=== PATIENT | male | born 1960 | race Caucasian/White ===

== ENCOUNTER 2017-07-28 14:00 | Inpatient (IN) | payer BC ==
[~2017-07-28] VITALS: Ht 177.8 cm; Wt 102.1 kg
[~2017-07-28 14:00] MED LIST changes: -ALLO100T PO; -CPR500 PO; -GLC/500 PO; -IBUP-103 PO; -MONT1TAB3 PO; -MTR500 PO; -MULTTAB58 PO; -OLME40TA30 PO; -OPTIRAY 320 IV PRN; -PRAV10TA39 PO; -PRVHFAIN INH
[2017-07-28] MEDS ORDERED: PIPERACILLIN/TAZOBACTAM 3.375 GM/100ML D5W IV STA (15:14)
[2017-07-28] MEDS ORDERED: SODIUM CHLORIDE 0.9% 1000ML 1,000 ML IV ONE (15:15)
--- NOTE | 2017-07-28 15:31 | EMERGENCY ROOM VISIT NOTE ---
History First contact with patient: 15:07 Chief Complaint: ABDOMINAL PAIN Stated Complaint: LOWER BELLY PAIN Nursing Triage Summary: Abdominal pain. Denies n/v/d. Seen at [facility], had blood work and CT, told to come to the ER. See orange note and papers on chart. History of Present Illness The patient is a 57 year old male who presents to the Emergency Room with complaints of lower abdominal discomfort for approximately one week. He describes it as a bad, dull aching sensation. He says that it has actually gotten slightly better since it started. He has had no nausea. He has had diarrhea without any blood in his stool. The patient saw his primary care physician 2 days ago. Blood work was performed at that time. He had a CAT scan of the abdomen and pelvis today that showed sigmoid diverticulitis with associated microperforation/developing abscess. He denies any fever or chills. He does report significant fatigue. No history of diverticulitis. He had a colonoscopy that was reportedly normal at [facility] 5 years ago. Review of Systems 10 system review performed and negative unless noted in HPI or below Past Medical/Surgical History Medical Problems: (1) Diverticulitis of intestine with abscess Hypertension, diabetes type 2 Social History Smoking Status: Never Smoker Current/Historical Medications Scheduled Allopurinol (Zyloprim), 100 MG PO DAILY Metformin Hcl (Glucophage), 500 MG PO DAILY Montelukast Sodium (Singulair), 10 MG PO DAILY Multiple Vitamin (Multivitamin), 1 TAB PO DAILY Olmesartan/Hctz (Benicar Hct 40/12.5), 1 TAB PO DAILY Pravastatin Sodium (Pravastatin Sodium), 10 MG PO DAILY Scheduled PRN Albuterol (Ventolin Hfa), 2 PUFFS INH UD PRN for Rescue/COPD Ibuprofen Tab (Advil), 200 MG PO UD PRN for Pain or Fever Allergies Coded Allergies: No Known Allergies (Verified Allergy, Unknown, 06/11/06) Physical Exam Vital Signs Date Time Temp Pulse Resp B/P (MAP) Pulse Ox O2 Delivery O2 Flow Rate FiO2 07/28/17 16:54 79 17 123/88 96 Room Air 07/28/17 16:12 82 17 147/88 95 Room Air 07/28/17 14:02 36.8 89 18 154/94 96 Room Air Physical Exam VITALS: Vitals are noted on the nurse's note and reviewed by myself. Vital signs stable. GENERAL: 57-year-old male, in no acute distress, nondiaphoretic, well-developed well-nourished. SKIN: The skin was without rashes, erythema, edema, or bruising. HEAD: Normocephalic atraumatic. MOUTH: Mucous membranes oral mucosa slightly dry. NECK: No JVD. HEART: Regular rate and rhythm without murmurs gallops or rubs. LUNGS: Clear to auscultation bilaterally without wheezes, rales or rhonchi. No accessory muscle use. ABDOMEN: Positive bowel sounds x 4.Soft, tenderness to palpation noted in the left lower quadrant., without organomegaly. No guarding or rebound tenderness. MUSCULOSKELETAL: No muscle atrophy, erythema, or edema noted. Strength 5/5 throughout. NEURO: Patient was alert and oriented to person place and time. Normal sensation to touch. No focal neurological deficits. Medical Decision & Procedures ER Provider Diagnostic Interpretation: CT of the abdomen and pelvis IMPRESSION: Sigmoid diverticulitis with an adjacent 1.7 cm focus of extraluminal gas. This consistent with a microperforation/developing abscess. Laboratory Results Test 07/28/17 16:05 Immature Granulocyte % (Auto) 0.2 % White Blood Count 6.02 K/uL (4.8-10.8) Red Blood Count 5.12 M/uL (4.7-6.1) Hemoglobin 14.6 g/dL (14.0-18.0) Hematocrit 43.3 % (42-52) Mean Corpuscular Volume 84.6 fL (80-100) Mean Corpuscular Hemoglobin 28.5 pg (25-34) Mean Corpuscular Hemoglobin Concent 33.7 g/dl (32-36) Platelet Count 280 K/uL (130-400) Mean Platelet Volume 10.1 fL (7.4-10.4) Neutrophils (%) (Auto) 44.7 % Lymphocytes (%) (Auto) 42.0 % Monocytes (%) (Auto) 8.6 % Eosinophils (%) (Auto) 4.0 % Basophils (%) (Auto) 0.5 % Neutrophils # (Auto) 2.69 K/uL (1.4-6.5) Lymphocytes # (Auto) 2.53 K/uL (1.2-3.4) Monocytes # (Auto) 0.52 K/uL (0.11-0.59) Eosinophils # (Auto) 0.24 K/uL (0-0.5) Basophils # (Auto) 0.03 K/uL (0-0.2) Immature Granulocyte # (Auto) 0.01 K/uL (0.00-0.02) Prothrombin Time 9.9 SECONDS (9.0-12.0) Prothromb Time International Ratio 0.9 (0.9-1.1) Medications Administered Medications (Trade) Dose Ordered Sig/Jocelyn Route Start Time Stop Time Status Last Admin Dose Admin Sodium Chloride 1,000 ml @ 999 mls/hr Q1H1M ONCE IV 07/28/17 15:15 07/28/17 16:15 DC 07/28/17 16:16 999 MLS/HR Piperacillin Sod/ Tazobactam Sod (Zosyn Iv) 3.375 gm NOW STAT IV 07/28/17 15:14 07/28/17 15:17 DC 07/28/17 16:16 3.375 GM ED Course Patient was seen and examined Vital signs including blood pressure were reviewed medications list was verified with patient Labs were obtained, and a saline lock was established The case was discussed with the emergency room a pharmacist. He was given 1 dose of Zosyn. He was hydrated with 1 L of normal saline. The case was discussed with Dr. Harper from general surgery. He agreed to see the patient in consult. [facility]. Medical Decision Differential diagnosis: Diverticulitis, perforation, abscess, sepsis This patient is a pleasant 57-year-old male that presented to the emergency department per his PCPs instructions after having a CT of the abdomen and pelvis this morning. The patient has had a week of abdominal pain. His CAT scan confirmed sigmoid diverticulitis with microperforation/abscess. He was medicated with antibiotics. He declined pain medications. Here will require admission for further workup and treatment. This chart was completed in part utilizing [employer] Voice Recognition software. Attempts were made to minimize the grammatical errors, random word insertions, pronoun errors and incomplete sentences. Any formal questions or concerns about the content, text or information contained within the body of this dictation should be directly addressed to the provider for clarification. Consults Consulting Physician: dr harper. Dr. Le Impression Primary Impression: Diverticulitis of intestine with abscess Departure Information Referrals Angie Degroot PA-C (PCP) Patient Instructions [facility]
[2017-07-28] MEDS ORDERED: IBUP-103 PO (16:10)
[2017-07-28] MEDS ORDERED: OLME40TA30 PO (16:10)
[2017-07-28] MEDS ORDERED: ALLO100T PO (16:10)
[2017-07-28] MEDS ORDERED: PRVHFAIN INH (16:10)
[2017-07-28] MEDS ORDERED: MULTTAB58 PO (16:10)
[2017-07-28] MEDS ORDERED: MONT1TAB3 PO (16:10)
[2017-07-28] MEDS ORDERED: GLC/500 PO (16:10)
[2017-07-28] MEDS ORDERED: PRAV10TA39 PO (16:10)
[2017-07-28 16:31] LABS: BASO % 0.5 %; BASO ABS # 0.03 K/uL (0-0.2); COMPLETE YES; HEMATOCRIT 43.3 % (42-52); IG% 0.2 %; LYMPH ABS # 2.53 K/uL (1.2-3.4); MEAN CELL VOLUME 84.6 fL (80-100); MEAN CORPUSCULAR HEMOGLOBIN 28.5 pg (25-34); MEAN CORPUSCULAR HGB CONC 33.7 g/dl (32-36); MEAN PLATELET VOLUME 10.1 fL (7.4-10.4); MONO % 8.6 %; NEUT % 44.7 %; PLATELET COUNT 280 K/uL (130-400); RED BLOOD COUNT 5.12 M/uL (4.7-6.1); WHITE BLOOD COUNT 6.02 K/uL (4.8-10.8)
[2017-07-28 16:39] LABS: INR 0.9 (0.9-1.1); PROTHROMBIN TIME (PATIENT) 9.9 SECONDS (9.0-12.0)
[2017-07-28 16:47] LABS: BUN/CREATININE RATIO 18.6 (10-20); CALCIUM 9.1 mg/dl (8.5-10.1); CREATININE 0.98 mg/dl (0.60-1.40); POTASSIUM 3.8 mmol/L (3.5-5.1)
--- NOTE | 2017-07-28 18:22 | Medical Consult ---
Consultation Date of Consultation: Jul 28, 2017. Attending Physician: Reason for Consultation: diverticulitis History of Present Illness pt with 1 week of lower abd dull aching pain- persistent- presenting to ER w/u included CT scan showing mid sigmoid diverticulitis w/ contained perforation- small gas bubble- no fluid or abscess. Social History Smoking Status: Never Smoker Allergies Coded Allergies: No Known Allergies (Verified Allergy, Unknown, 06/11/06) Review of Systems Constitutional: No fever, No chills Respiratory: No cough, No shortness of breath Cardiovascular: No chest pain Abdomen: + pain, No nausea, No vomiting Genitourinary - Male: No dysuria Integumentary: No rash Physical Exam Date Time Temp Pulse Resp B/P (MAP) Pulse Ox O2 Delivery O2 Flow Rate FiO2 07/28/17 16:54 79 17 123/88 96 Room Air 07/28/17 16:12 82 17 147/88 95 Room Air 07/28/17 14:02 36.8 89 18 154/94 96 Room Air General Appearance: WD/WN, no apparent distress Head: atraumatic Eyes: sclerae normal Neck: supple Respiratory/Chest: no respiratory distress Cardiovascular: regular rate, rhythm Abdomen/GI: soft, + pertinent finding (mild lower abd tenderness) Neurologic/Psych: alert Skin: no rash Laboratory Results Last 24 Hours Test 07/28/17 16:05 White Blood Count 6.02 K/uL Red Blood Count 5.12 M/uL Hemoglobin 14.6 g/dL Hematocrit 43.3 % Mean Corpuscular Volume 84.6 fL Mean Corpuscular Hemoglobin 28.5 pg Mean Corpuscular Hemoglobin Concent 33.7 g/dl Platelet Count 280 K/uL Mean Platelet Volume 10.1 fL Neutrophils (%) (Auto) 44.7 % Lymphocytes (%) (Auto) 42.0 % Monocytes (%) (Auto) 8.6 % Eosinophils (%) (Auto) 4.0 % Basophils (%) (Auto) 0.5 % Neutrophils # (Auto) 2.69 K/uL Lymphocytes # (Auto) 2.53 K/uL Monocytes # (Auto) 0.52 K/uL Eosinophils # (Auto) 0.24 K/uL Basophils # (Auto) 0.03 K/uL RDW Standard Deviation 45.4 fL RDW Coefficient of Variation 14.6 % Immature Granulocyte % (Auto) 0.2 % Immature Granulocyte # (Auto) 0.01 K/uL Prothrombin Time 9.9 SECONDS Prothromb Time International Ratio 0.9 Sodium Level 141 mmol/L Potassium Level 3.8 mmol/L Chloride Level 106 mmol/L Carbon Dioxide Level 25 mmol/L Anion Gap 10.0 mmol/L Blood Urea Nitrogen 18 mg/dl Creatinine 0.98 mg/dl Est Creatinine Clear Calc Drug Dose 100.8 ml/min Estimated GFR () 99.5 Estimated GFR (Non- 85.8 BUN/Creatinine Ratio 18.6 Random Glucose 91 mg/dl Calcium Level 9.1 mg/dl Assessment & Plan 07/28/17- pt admitted with acute diverticulitis with very small area of contained perforation. Cont IV atbx 3-5 days- limit po to ice chips for now.
[2017-07-28] MEDS ORDERED: ALUMINUM/MAGNESIUM/SIMETH (MAALOX MAX) 30 ML UDC PO PRN (18:30)
[2017-07-28] MEDS ORDERED: ACETAMINOPHEN 325 MG TAB PO PRN (18:30)
[2017-07-28] MEDS ORDERED: ONDANSETRON INJ 2 MG/ML 2 ML VIAL IV PRN (18:30)
[2017-07-28] MEDS ORDERED: ZOLPIDEM TARTRATE 5 MG TAB PO PRN (18:30)
[2017-07-28] MEDS ORDERED: MAGNESIUM HYDROXIDE SUSP 30 ML UDC PO PRN (18:30)
[2017-07-28] MEDS ORDERED: HydrALAZINE HCL 20 MG/ML VIAL IV. PRN (18:30)
[2017-07-28] MEDS ORDERED: POLYETHYLENE (MIRALAX) 17 GM PACK PO PRN (18:30)
[2017-07-28] MEDS ORDERED: ALBUTEROL HFA 8 GM INHALER INH PRN (18:30)
[2017-07-28 18:59] VITALS: Ht 177.8 cm; Wt 102.1 kg
[2017-07-28] MEDS ORDERED: HYDROmorphone INJ 0.5 MG/0.5 ML SYR IV PRN (19:00)
--- NOTE | 2017-07-28 19:05 | History and Physical ---
History & Physical Date & Time of Service: Jul 28, 2017 at 18:49 Chief Complaint: Lower Belly Pain Primary Care Physician: Angie Degroot PA-C History of Present Illness Source: patient 57 y/o M Hx gout, HTN, HPL, DM, COPD. Presenting with intermittent LLQ abdominal pain x one week - denies fevers/rigors, nausea or vomiting. Has had a few episodes of diarrhea. A CT was obtained in the ER and is consistent with diverticulitis. There is concern for microperforation and developing abscess as well. Leukocytosis is present on initial labs. 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 Does not drink. Smoking Status: Never Smoker Immunizations History of Influenza Vaccine: No History of Tetanus Vaccine?: No History of Pneumococcal: No History of Hepatitis B Vaccine: No Multi-Drug Resistant Organisms History of MDRO: No Allergies Coded Allergies: No Known Allergies (Verified Allergy, Unknown, 06/11/06) Home Medications Scheduled Allopurinol (Zyloprim), 100 MG PO DAILY Metformin Hcl (Glucophage), 500 MG PO DAILY Montelukast Sodium (Singulair), 10 MG PO DAILY Multiple Vitamin (Multivitamin), 1 TAB PO DAILY Olmesartan/Hctz (Benicar Hct 40/12.5), 1 TAB PO DAILY Pravastatin Sodium (Pravastatin Sodium), 10 MG PO DAILY Scheduled PRN Albuterol (Ventolin Hfa), 2 PUFFS INH UD PRN for Rescue/COPD Ibuprofen Tab (Advil), 200 MG PO UD PRN for Pain or Fever Review of Systems Constitutional: No fever, No chills Eyes: No worsening of vision ENT: No hearing loss, No unusual epistaxis, No nasal symptoms Respiratory: No cough, No sputum, No wheezing Cardiovascular: No chest pain, No orthopnea, No PND Abdomen: + pain, + diarrhea, No nausea, No vomiting Musculoskeletal: No joint pain Genitourinary - Male: No hematuria, No dysuria Neurologic: No memory loss, No paralysis, No weakness Psychiatric: No depression symptoms Endocrine: No fatigue Hematologic / Lymphatic: No abnormal bleeding/bruising Integumentary: No rash Allergic / Immunologic: No environmental allergies Physical Exam Vital Signs Date Time Temp Pulse Resp B/P (MAP) Pulse Ox O2 Delivery O2 Flow Rate FiO2 07/28/17 16:54 79 17 123/88 96 Room Air 07/28/17 16:12 82 17 147/88 95 Room Air 07/28/17 14:02 36.8 89 18 154/94 96 Room Air General Appearance: WD/WN, no apparent distress Head: normocephalic Eyes: normal inspection, EOMI ENT: normal ENT inspection, pharynx normal Neck: supple, no JVD Respiratory/Chest: chest non-tender, lungs clear, normal breath sounds Cardiovascular: regular rate, rhythm, no edema, no gallop Abdomen/GI: normal bowel sounds, non tender, soft, + pertinent finding (no current pain to palpation ) Back: normal inspection, no CVA tenderness, no muscle spasm, normal range of motion Extremities/Musculoskelatal: normal inspection, no calf tenderness, normal capillary refill, no pedal edema, normal range of motion Neurologic/Psych: architect marine II-XII nml as tested, no motor/sensory deficits, alert, oriented x 3 Skin: normal color, warm/dry, no rash Diagnostics Laboratory Results Results Past 24 Hours Test 07/28/17 16:05 Range/Units White Blood Count 6.02 4.8-10.8 K/uL Red Blood Count 5.12 4.7-6.1 M/uL Hemoglobin 14.6 14.0-18.0 g/dL Hematocrit 43.3 42-52 % Mean Corpuscular Volume 84.6 80-100 fL Mean Corpuscular Hemoglobin 28.5 25-34 pg Mean Corpuscular Hemoglobin Concent 33.7 32-36 g/dl Platelet Count 280 130-400 K/uL Mean Platelet Volume 10.1 7.4-10.4 fL Neutrophils (%) (Auto) 44.7 % Lymphocytes (%) (Auto) 42.0 % Monocytes (%) (Auto) 8.6 % Eosinophils (%) (Auto) 4.0 % Basophils (%) (Auto) 0.5 % Neutrophils # (Auto) 2.69 1.4-6.5 K/uL Lymphocytes # (Auto) 2.53 1.2-3.4 K/uL Monocytes # (Auto) 0.52 0.11-0.59 K/uL Eosinophils # (Auto) 0.24 0-0.5 K/uL Basophils # (Auto) 0.03 0-0.2 K/uL RDW Standard Deviation 45.4 36.4-46.3 fL RDW Coefficient of Variation 14.6 11.5-14.5 % Immature Granulocyte % (Auto) 0.2 % Immature Granulocyte # (Auto) 0.01 0.00-0.02 K/uL Prothrombin Time 9.9 9.0-12.0 SECONDS Prothromb Time International Ratio 0.9 0.9-1.1 Sodium Level 141 136-145 mmol/L Potassium Level 3.8 3.5-5.1 mmol/L Chloride Level 106 98-107 mmol/L Carbon Dioxide Level 25 21-32 mmol/L Anion Gap 10.0 3-11 mmol/L Blood Urea Nitrogen 18 7-18 mg/dl Creatinine 0.98 0.60-1.40 mg/dl Est Creatinine Clear Calc Drug Dose 100.8 ml/min Estimated GFR () 99.5 Estimated GFR (Non- 85.8 BUN/Creatinine Ratio 18.6 10-20 Random Glucose 91 70-99 mg/dl Calcium Level 9.1 8.5-10.1 mg/dl Impression Assessment and Plan 57 y/o M Hx gout, HTN, HPL, DM, COPD. Presenting with intermittent LLQ abdominal pain x one week - denies fevers/rigors, nausea or vomiting. Has had a few episodes of diarrhea. A CT was obtained in the ER and is consistent with diverticulitis. There is concern for microperforation and developing abscess as well. Leukocytosis is present on initial labs. 1) Diverticulitis - possibly perforation and abscess - pt placed on Zosyn - NPO , surgical consult, IV pain meds as needed. 2) DM - placed on Q6h SS 3) COPD - continue prescribed inhalers - no evidence of acute exacerbation. 4) HTN - Olmesartan held - Hydralazine as needed for BP control 5) gout - cont Allopurinol 6) HPL - cont Statin Tx Full code - SCDs pending surgery eval - total time for this admit including review of labs, meds, imaging - Discussion with pt and ER attending - 35 min Level of Care Med/Surg Resuscitation Status FULL RESUSCITATION VTE Prophylaxis VTE Risk Assessment Done? Y/N: Yes Risk Level: Low Given or contraindicated: SCD's
[2017-07-28 19:40] VITALS: BP 168/102; PULSE 76; TEMP 36.7; O2SAT 95
[2017-07-28] MEDS ORDERED: PIPERACILL/TAZOBAC CONSULT ACTIVE PRN (20:00)
[2017-07-28] MEDS: INSULIN ASPART 100 UNITS/ML 3 ML PEN SC SCH (20:06)
[2017-07-28] MEDS ORDERED: GLUCOSE 40% GEL 15 GM TUBE PO PRN (20:15)
[2017-07-28] MEDS ORDERED: GLUCAGON FOR INJ 1 MG VIAL SQ PRN (20:15)
[2017-07-28] MEDS ORDERED: DEXTROSE 50% 50 ML SYR IV PRN (20:15)
[2017-07-28] MEDS ORDERED: GLUCOSE 10 TABS/TUBE PO PRN (20:15)
[2017-07-28] MEDS: NSS + 20MEQ KCL 1000ML 1,000 ML IV SCH (21:05)
[2017-07-28 21:12] VITALS: BP 140/90
[2017-07-28] MEDS: PIPERACILL/TAZOBAC IV 3.375 GM in DEXTROSE 5% 100ML 100 ML IV SCH (21:43)
[2017-07-29] VITALS (7 sets, daily range): BP systolic 123–158; BP diastolic 76–104; PULSE 73–87; TEMP 36.6–36.8; O2SAT 94–97
[2017-07-29] MEDS: INSULIN ASPART 100 UNITS/ML 3 ML PEN SC SCH ×4 (00:20→18:30)
[2017-07-29] MEDS: PIPERACILL/TAZOBAC IV 3.375 GM in DEXTROSE 5% 100ML 100 ML IV SCH ×3 (05:46→21:32)
[2017-07-29] MEDS: NSS + 20MEQ KCL 1000ML 1,000 ML IV SCH ×2 (05:46→16:47)
[2017-07-29 06:17] LABS: MEAN CELL VOLUME 84.4 fL (80-100); MEAN CORPUSCULAR HEMOGLOBIN 27.1 pg (25-34); MEAN CORPUSCULAR HGB CONC 32.1 g/dl (32-36); MEAN PLATELET VOLUME 9.5 fL (7.4-10.4); PLATELET COUNT 234 K/uL (130-400); RED BLOOD COUNT 4.62 M/uL (4.7-6.1); WHITE BLOOD COUNT 5.98 K/uL (4.8-10.8)
[2017-07-29 06:51] LABS: BUN/CREATININE RATIO 15.2 (10-20); CALCIUM 8.1 mg/dl (8.5-10.1); CREATININE 0.94 mg/dl (0.60-1.40); MAGNESIUM 2.1 mg/dl (1.8-2.4); POTASSIUM 4.1 mmol/L (3.5-5.1)
--- NOTE | 2017-07-29 08:08 | Surgery Progress Note ---
Surgery Progress Note Date of Service Jul 29, 2017. Subjective + feeling well, No complaints, No bowel movement, No nausea Objective Vital Signs: Date Time Temp Pulse Resp B/P (MAP) Pulse Ox O2 Delivery O2 Flow Rate FiO2 07/29/17 07:02 36.8 85 16 123/76 (92) 95 Room Air 07/29/17 00:10 36.6 80 16 132/82 (99) 97 Room Air 07/29/17 00:05 Room Air 07/28/17 21:12 140/90 (107) 07/28/17 19:40 36.7 76 16 168/102 (124) 95 Room Air 07/28/17 19:40 95 Room Air 07/28/17 19:33 80 19 145/100 95 07/28/17 19:13 80 19 145/100 95 Room Air 07/28/17 18:59 Room Air 07/28/17 16:54 79 17 123/88 96 Room Air 07/28/17 16:12 82 17 147/88 95 Room Air 07/28/17 14:02 36.8 89 18 154/94 96 Room Air Abdomen: non tender, non distended, soft Laboratory Results: Results Past 24 Hours Test 07/28/17 16:05 07/28/17 23:58 07/29/17 05:53 07/29/17 06:04 Range/Units White Blood Count 6.02 5.98 4.8-10.8 K/uL Red Blood Count 5.12 4.62 4.7-6.1 M/uL Hemoglobin 14.6 12.5 14.0-18.0 g/dL Hematocrit 43.3 39.0 42-52 % Mean Corpuscular Volume 84.6 84.4 80-100 fL Mean Corpuscular Hemoglobin 28.5 27.1 25-34 pg Mean Corpuscular Hemoglobin Concent 33.7 32.1 32-36 g/dl Platelet Count 280 234 130-400 K/uL Mean Platelet Volume 10.1 9.5 7.4-10.4 fL Neutrophils (%) (Auto) 44.7 % Lymphocytes (%) (Auto) 42.0 % Monocytes (%) (Auto) 8.6 % Eosinophils (%) (Auto) 4.0 % Basophils (%) (Auto) 0.5 % Neutrophils # (Auto) 2.69 1.4-6.5 K/uL Lymphocytes # (Auto) 2.53 1.2-3.4 K/uL Monocytes # (Auto) 0.52 0.11-0.59 K/uL Eosinophils # (Auto) 0.24 0-0.5 K/uL Basophils # (Auto) 0.03 0-0.2 K/uL RDW Standard Deviation 45.4 45.4 36.4-46.3 fL RDW Coefficient of Variation 14.6 14.7 11.5-14.5 % Immature Granulocyte % (Auto) 0.2 % Immature Granulocyte # (Auto) 0.01 0.00-0.02 K/uL Prothrombin Time 9.9 9.0-12.0 SECONDS Prothromb Time International Ratio 0.9 0.9-1.1 Sodium Level 141 143 136-145 mmol/L Potassium Level 3.8 4.1 3.5-5.1 mmol/L Chloride Level 106 110 98-107 mmol/L Carbon Dioxide Level 25 24 21-32 mmol/L Anion Gap 10.0 9.0 3-11 mmol/L Blood Urea Nitrogen 18 14 7-18 mg/dl Creatinine 0.98 0.94 0.60-1.40 mg/dl Est Creatinine Clear Calc Drug Dose 100.8 105.0 ml/min Estimated GFR () 99.5 104.6 Estimated GFR (Non- 85.8 90.3 BUN/Creatinine Ratio 18.6 15.2 10-20 Random Glucose 91 113 70-99 mg/dl Calcium Level 9.1 8.1 8.5-10.1 mg/dl Bedside Glucose 111 110 70-99 mg/dl Magnesium Level 2.1 1.8-2.4 mg/dl Assessment & Plan diverticulitis with microperf improving cont IV Zosyn ice chips, maybe clears later
[2017-07-29] MEDS: ALLOPURINOL 100 MG TAB PO SCH (09:12)
[2017-07-29] MEDS: PRAVASTATIN SOD 10 MG TAB PO SCH (09:12)
[2017-07-29] MEDS: MONTELUKAST SOD 10 MG TAB PO SCH (09:13)
--- NOTE | 2017-07-29 14:34 | Progress Note ---
Subjective Date of Service: Jul 29, 2017. Subjective Pt evaluation today including: conversation w/ patient, physical exam, chart review, lab review, review of studies, review of inpatient medication list Pt resting comfortably in bed No pain at this time No N/V as well Review of Systems Constitutional: No fever, No chills, No sweats, No weight loss, No weakness Eyes: No worsening of vision, No eye pain, No redness, No discharge ENT: No hearing loss, No unusual epistaxis, No nasal symptoms, No sore throat Respiratory: No cough, No sputum, No wheezing, No shortness of breath Cardiac: No chest pain, No orthopnea, No PND, No edema, No claudication Abdomen: No pain, No nausea, No vomiting, No diarrhea, No constipation Musculoskeletal: No joint pain, No muscle pain, No swelling, No calf pain Male : No dysuria, No urinary frequency, No incontinence, No nocturia more than once/night Neurologic: No memory loss, No paralysis, No weakness, No numbness/tingling Psychiatric: No depression symptoms, No anhedonism, No anxiety, No insomnia Endo: No fatigue, No excessive thirst Skin: No rash, No itch Objective Vital Signs Date Time Temp Pulse Resp B/P (MAP) Pulse Ox O2 Delivery O2 Flow Rate FiO2 07/29/17 11:10 36.7 73 16 144/104 (117) 94 Room Air 07/29/17 08:17 95 Room Air 07/29/17 07:45 95 Room Air 07/29/17 07:40 Room Air 07/29/17 07:02 36.8 85 16 123/76 (92) 95 Room Air 07/29/17 00:10 36.6 80 16 132/82 (99) 97 Room Air 07/29/17 00:05 Room Air 07/28/17 21:12 140/90 (107) 07/28/17 19:40 36.7 76 16 168/102 (124) 95 Room Air 07/28/17 19:40 95 Room Air 07/28/17 19:33 80 19 145/100 95 07/28/17 19:13 80 19 145/100 95 Room Air 07/28/17 18:59 Room Air 07/28/17 16:54 79 17 123/88 96 Room Air 07/28/17 16:12 82 17 147/88 95 Room Air Physical Exam General Appearance: WD/WN, no apparent distress Eyes: normal inspection, PERRL, EOMI, sclerae normal Neck: supple, no adenopathy, thyroid normal, no JVD Respiratory/Chest: chest non-tender, lungs clear, normal breath sounds, no respiratory distress Cardiovascular: regular rate, rhythm, no edema, no gallop, no JVD Abdomen: normal bowel sounds, non tender, soft, no organomegaly Extremities: normal range of motion, non-tender, normal inspection, no pedal edema Neurologic/Psychiatric: no motor/sensory deficits, alert, normal mood/affect, oriented x 3 Laboratory Results Last 24 Hours Test 07/28/17 16:05 07/28/17 23:58 07/29/17 05:53 07/29/17 06:04 White Blood Count 6.02 K/uL 5.98 K/uL Red Blood Count 5.12 M/uL 4.62 M/uL Hemoglobin 14.6 g/dL 12.5 g/dL Hematocrit 43.3 % 39.0 % Mean Corpuscular Volume 84.6 fL 84.4 fL Mean Corpuscular Hemoglobin 28.5 pg 27.1 pg Mean Corpuscular Hemoglobin Concent 33.7 g/dl 32.1 g/dl Platelet Count 280 K/uL 234 K/uL Mean Platelet Volume 10.1 fL 9.5 fL Neutrophils (%) (Auto) 44.7 % Lymphocytes (%) (Auto) 42.0 % Monocytes (%) (Auto) 8.6 % Eosinophils (%) (Auto) 4.0 % Basophils (%) (Auto) 0.5 % Neutrophils # (Auto) 2.69 K/uL Lymphocytes # (Auto) 2.53 K/uL Monocytes # (Auto) 0.52 K/uL Eosinophils # (Auto) 0.24 K/uL Basophils # (Auto) 0.03 K/uL RDW Standard Deviation 45.4 fL 45.4 fL RDW Coefficient of Variation 14.6 % 14.7 % Immature Granulocyte % (Auto) 0.2 % Immature Granulocyte # (Auto) 0.01 K/uL Prothrombin Time 9.9 SECONDS Prothromb Time International Ratio 0.9 Sodium Level 141 mmol/L 143 mmol/L Potassium Level 3.8 mmol/L 4.1 mmol/L Chloride Level 106 mmol/L 110 mmol/L Carbon Dioxide Level 25 mmol/L 24 mmol/L Anion Gap 10.0 mmol/L 9.0 mmol/L Blood Urea Nitrogen 18 mg/dl 14 mg/dl Creatinine 0.98 mg/dl 0.94 mg/dl Est Creatinine Clear Calc Drug Dose 100.8 ml/min 105.0 ml/min Estimated GFR () 99.5 104.6 Estimated GFR (Non- 85.8 90.3 BUN/Creatinine Ratio 18.6 15.2 Random Glucose 91 mg/dl 113 mg/dl Calcium Level 9.1 mg/dl 8.1 mg/dl Bedside Glucose 111 mg/dl 110 mg/dl Magnesium Level 2.1 mg/dl Test 07/29/17 11:42 Bedside Glucose 96 mg/dl Assessment and Plan 57 y/o M Hx gout, HTN, HPL, DM, COPD. Presenting with intermittent LLQ abdominal pain x one week - denies fevers/rigors, nausea or vomiting. Has had a few episodes of diarrhea. A CT was obtained in the ER and is consistent with diverticulitis. There is concern for microperforation and developing abscess as well. Leukocytosis is present on initial labs. Diverticulitis with microperforation and abscess - pt placed on Zosyn day # 2 - Kept NPO, surgical consult, IV pain meds. No leukocytosis or fevers and pain controlled. Will defer advancement of diet to surgry team DM - placed on Q6h SS COPD - continue prescribed inhalers - no evidence of acute exacerbation. HTN - Olmesartan held - Hydralazine as needed for BP control gout - cont Allopurinol HPL - cont Statin Tx Full code - SCDs
[2017-07-29] MEDS ORDERED: NURSING VERBAL MED ORDER ONE (16:00)
[2017-07-30] MEDS: INSULIN ASPART 100 UNITS/ML 3 ML PEN SC SCH ×5 (00:10→21:00)
[2017-07-30] MEDS: NSS + 20MEQ KCL 1000ML 1,000 ML IV SCH ×3 (01:55→22:04)
[2017-07-30] MEDS: PIPERACILL/TAZOBAC IV 3.375 GM in DEXTROSE 5% 100ML 100 ML IV SCH ×3 (05:58→22:06)
[2017-07-30 07:05] VITALS: BP 143/90; PULSE 73; TEMP 36.7; O2SAT 96
--- NOTE | 2017-07-30 07:41 | Surgery Progress Note ---
Surgery Progress Note Date of Service Jul 30, 2017. Subjective feels ok- min pain Objective Vital Signs: Date Time Temp Pulse Resp B/P (MAP) Pulse Ox O2 Delivery O2 Flow Rate FiO2 07/29/17 23:15 Room Air 07/29/17 22:49 36.6 76 16 140/83 (102) 94 Room Air 07/29/17 15:23 36.7 87 16 158/89 (112) 95 Room Air 07/29/17 15:20 Room Air 07/29/17 11:10 36.7 73 16 144/104 (117) 94 Room Air 07/29/17 08:17 95 Room Air 07/29/17 07:45 95 Room Air 07/29/17 07:40 Room Air General Appearance: no apparent distress Respiratory/Chest: no respiratory distress Abdomen: soft (minimal tenderness) Laboratory Results: Results Past 24 Hours Test 07/29/17 11:42 07/29/17 18:25 07/30/17 00:02 Range/Units Bedside Glucose 96 92 112 70-99 mg/dl Assessment & Plan 07/30/17- no acute chgs- try clear liquids- cont IV atbx slowly adv diet. will re CT at some point depending on progress- possibly outpt- Dr Badillo covering over weekend
[2017-07-30] MEDS: ALLOPURINOL 100 MG TAB PO SCH (09:03)
[2017-07-30] MEDS: PRAVASTATIN SOD 10 MG TAB PO SCH (09:03)
[2017-07-30] MEDS: MONTELUKAST SOD 10 MG TAB PO SCH (09:03)
--- NOTE | 2017-07-30 15:09 | Progress Note ---
Subjective Date of Service: Jul 30, 2017. Subjective Pt evaluation today including: conversation w/ patient, physical exam, chart review, lab review, review of studies, review of inpatient medication list Pt resting in chair No signs of distress No fevers or chills No concerns noted Review of Systems Constitutional: No fever, No chills, No sweats, No weight loss, No weakness Eyes: No worsening of vision, No eye pain, No redness, No discharge Respiratory: No cough, No sputum, No wheezing, No shortness of breath, No dyspnea on exertion Cardiac: No chest pain, No orthopnea, No PND, No edema, No claudication Abdomen: No pain, No nausea, No vomiting, No diarrhea, No constipation Musculoskeletal: No joint pain, No muscle pain, No swelling, No calf pain Male : No dysuria, No urinary frequency Neurologic: No memory loss, No paralysis, No weakness, No numbness/tingling Psychiatric: No depression symptoms, No anhedonism, No anxiety, No insomnia Endo: No fatigue, No excessive thirst Skin: No rash, No itch Objective Vital Signs Date Time Temp Pulse Resp B/P (MAP) Pulse Ox O2 Delivery O2 Flow Rate FiO2 07/30/17 07:35 Room Air 07/30/17 07:05 36.7 73 16 143/90 (107) 96 Room Air 07/29/17 23:15 Room Air 07/29/17 22:49 36.6 76 16 140/83 (102) 94 Room Air 07/29/17 15:23 36.7 87 16 158/89 (112) 95 Room Air 07/29/17 15:20 Room Air Physical Exam General Appearance: WD/WN, no apparent distress Eyes: normal inspection, PERRL, EOMI, sclerae normal Neck: supple, no adenopathy, thyroid normal Respiratory/Chest: chest non-tender, lungs clear, normal breath sounds, no respiratory distress Cardiovascular: regular rate, rhythm, no edema, no gallop, no JVD Abdomen: normal bowel sounds, non tender, soft, no organomegaly Extremities: normal range of motion, non-tender, normal inspection, no pedal edema Neurologic/Psychiatric: no motor/sensory deficits, alert, normal mood/affect, oriented x 3 Skin: normal color, warm/dry, no rash Lymphatic: no adenopathy Laboratory Results Last 24 Hours Test 07/29/17 18:25 07/30/17 00:02 07/30/17 12:08 Bedside Glucose 92 mg/dl 112 mg/dl 94 mg/dl Assessment and Plan 57 y/o M Hx gout, HTN, HPL, DM, COPD. Presenting with intermittent LLQ abdominal pain x one week - denies fevers/rigors, nausea or vomiting. Has had a few episodes of diarrhea. A CT was obtained in the ER and is consistent with diverticulitis. There is concern for microperforation and developing abscess as well. Diverticulitis with microperforation and abscess Admitted to medical floor No hx of diverticulitis or bowel surgery in the past Placed on Zosyn day # 3, could likely switch to PO cipro and flagyl on discharge General surgery consulted Initially NPO now advanced to clears, per surgery will need slow advancement in diet and possible repeat CT abd/pelvis Pt in no acute abd pain DM - Controlled on ISS COPD - No evidence of acute exacerbation, cont singulair HTN - Benicar (40/12.5) held initially, will cont at this time as HTN remains uncontrolled. Hydralazine PRN for BP control Gout - cont Allopurinol 100 mg PO daily, no acute flares HPL - cont Pravastatin 10 mg PO daily. Full code - SCDs
[2017-07-30] MEDS ORDERED: NURSING VERBAL MED ORDER ONE (15:30)
[2017-07-30 15:48] VITALS: BP 151/91; PULSE 68; TEMP 36.7; O2SAT 96
[2017-07-30 23:05] VITALS: BP 161/93; PULSE 81; TEMP 36.7; O2SAT 95
[2017-07-31 02:32] VITALS: BP 156/91
[2017-07-31] MEDS: PIPERACILL/TAZOBAC IV 3.375 GM in DEXTROSE 5% 100ML 100 ML IV SCH (05:35)
[2017-07-31] MEDS: NSS + 20MEQ KCL 1000ML 1,000 ML IV SCH (07:03)
[2017-07-31 07:07] VITALS: BP 161/88; PULSE 79; TEMP 36.5; O2SAT 96
[2017-07-31 08:00] VITALS: O2SAT 96
[2017-07-31] MEDS: INSULIN ASPART 100 UNITS/ML 3 ML PEN SC SCH ×3 (08:00→17:15)
[2017-07-31] MEDS: MONTELUKAST SOD 10 MG TAB PO SCH (08:24)
[2017-07-31] MEDS: ALLOPURINOL 100 MG TAB PO SCH (08:24)
[2017-07-31] MEDS: PRAVASTATIN SOD 10 MG TAB PO SCH (08:24)
[2017-07-31 08:39] LABS: BASO % 0.2 %; BASO ABS # 0.01 K/uL (0-0.2); COMPLETE YES; EOS % 3.3 %; HEMATOCRIT 38.3 % (42-52); IG% 0.7 %; LYMPH % 31.8 %; LYMPH ABS # 1.75 K/uL (1.2-3.4); MEAN CELL VOLUME 83.1 fL (80-100); MEAN CORPUSCULAR HGB CONC 33.7 g/dl (32-36); MEAN PLATELET VOLUME 9.7 fL (7.4-10.4); MONO % 7.5 %; NEUT % 56.5 %; PLATELET COUNT 283 K/uL (130-400); RED BLOOD COUNT 4.61 M/uL (4.7-6.1)
[2017-07-31] MEDS ORDERED: OLMESARTAN MEDOXOMIL 40 MG TAB PO SCH (09:00)
[2017-07-31] MEDS ORDERED: HYDROCHLOROTHIAZIDE 25 MG TAB PO SCH (09:00)
[2017-07-31 09:10] LABS: BUN/CREATININE RATIO 7.7 (10-20); CALCIUM 8.5 mg/dl (8.5-10.1); CREATININE 0.97 mg/dl (0.60-1.40); POTASSIUM 4.1 mmol/L (3.5-5.1)
--- NOTE | 2017-07-31 09:28 | Surgery Progress Note ---
Surgery Progress Note Date of Service Jul 31, 2017. Subjective Patient examined at bedside this morning. Afebrile, vitals stable on room air overnight, no acute events. Sitting up comfortably in chair this morning, denies pain. Tolerated clear liquids for breakfast without N/V - would like to try more food. Had a normal / solid / formed BM this morning. Ambulating and voiding without difficulty. Objective Vital Signs: Date Time Temp Pulse Resp B/P (MAP) Pulse Ox O2 Delivery O2 Flow Rate FiO2 07/31/17 08:00 96 Room Air 07/31/17 07:07 36.5 79 18 161/88 (112) 96 Room Air 07/31/17 02:32 156/91 (112) 07/31/17 00:05 Room Air 07/30/17 23:05 36.7 81 18 161/93 (115) 95 Room Air 07/30/17 16:10 Room Air 07/30/17 15:48 36.7 68 16 151/91 (111) 96 Room Air General Appearance: WD/WN, no apparent distress Head: normocephalic, atraumatic Neck: supple Respiratory/Chest: lungs clear, normal breath sounds, no respiratory distress Cardiovascular: regular rate, rhythm Abdomen: normal bowel sounds, non tender, non distended, soft (no rebound / guarding) Laboratory Results: Results Past 24 Hours Test 07/30/17 12:08 07/30/17 17:35 07/30/17 20:34 07/31/17 08:05 Range/Units Bedside Glucose 94 105 98 70-99 mg/dl White Blood Count 5.50 4.8-10.8 K/uL Red Blood Count 4.61 4.7-6.1 M/uL Hemoglobin 12.9 14.0-18.0 g/dL Hematocrit 38.3 42-52 % Mean Corpuscular Volume 83.1 80-100 fL Mean Corpuscular Hemoglobin 28.0 25-34 pg Mean Corpuscular Hemoglobin Concent 33.7 32-36 g/dl Platelet Count 283 130-400 K/uL Mean Platelet Volume 9.7 7.4-10.4 fL Neutrophils (%) (Auto) 56.5 % Lymphocytes (%) (Auto) 31.8 % Monocytes (%) (Auto) 7.5 % Eosinophils (%) (Auto) 3.3 % Basophils (%) (Auto) 0.2 % Neutrophils # (Auto) 3.11 1.4-6.5 K/uL Lymphocytes # (Auto) 1.75 1.2-3.4 K/uL Monocytes # (Auto) 0.41 0.11-0.59 K/uL Eosinophils # (Auto) 0.18 0-0.5 K/uL Basophils # (Auto) 0.01 0-0.2 K/uL RDW Standard Deviation 44.3 36.4-46.3 fL RDW Coefficient of Variation 14.6 11.5-14.5 % Immature Granulocyte % (Auto) 0.7 % Immature Granulocyte # (Auto) 0.04 0.00-0.02 K/uL Sodium Level 144 136-145 mmol/L Potassium Level 4.1 3.5-5.1 mmol/L Chloride Level 112 98-107 mmol/L Carbon Dioxide Level 25 21-32 mmol/L Anion Gap 7.0 3-11 mmol/L Blood Urea Nitrogen 8 7-18 mg/dl Creatinine 0.97 0.60-1.40 mg/dl Est Creatinine Clear Calc Drug Dose 101.8 ml/min Estimated GFR () 100.7 Estimated GFR (Non- 86.9 BUN/Creatinine Ratio 7.7 10-20 Random Glucose 112 70-99 mg/dl Calcium Level 8.5 8.5-10.1 mg/dl Assessment & Plan Azael Mckeon is a 57 year old man admitted with acute diverticulitis with microperforation. Afebrile, vitals stable and normal. No leukocytosis. Continues on zosyn. Tolerating clear liquids without difficulty. Having BMs. -No acute surgical intervention indicated at this time -Advanced to regular diet -Transition from IV to PO antibiotics today -Pain control if needed -Could possibly be discharged later today if tolerates diet and transitions to PO antibiotics -Follow up with Dr. Vera as outpatient -Rest of care per primary team -Will continue to follow while inpatient Loree Badillo MD 07/31/17
[2017-07-31] MEDS ORDERED: CIPROFLOXACIN 500 MG TAB PO ONE (09:42)
[2017-07-31] MEDS: METRONIDAZOLE 500 MG TAB PO SCH ×2 (13:59→19:32)
[2017-07-31 15:15] VITALS: BP 152/95; PULSE 72; TEMP 36.9; O2SAT 97
[2017-07-31] MEDS ORDERED: MTR500 PO (19:16)
[2017-07-31] MEDS ORDERED: CPR500 PO (19:16)
[2017-07-31 19:20] VITALS: BP 152/95; PULSE 72; TEMP 36.9; O2SAT 97
--- NOTE | 2017-07-31 19:20 | Discharge Instructions ---
Discharge Instructions Date of Service Jul 31, 2017. Admission Reason for Admission: Acute Diverticulitis Discharge Discharge Diagnosis / Problem: Acute diverticulitis Discharge Goals Goal(s): Improve disease control, Diagnostic testing, Therapeutic intervention Activity Recommendations Activity Limitations: resume your previous activity Exercise/Sports Limitations: gradually increase as tolerated Shower/Bathe: no limitations Driving or Machine Use: no limitations . Instructions / Follow-Up Instructions / Follow-Up You were admitted with acute diverticulitis-an intestinal infection. You had a "microperforation" which is a small pocket of air around the infection. You were treated with IV antibiotics and improved. Please finish out your whole course of oral antibiotics as prescribed-Cipro and Flagyl for 6 more days. Please follow up with your PCP within 1-2 weeks, as well as with Dr. Vera ( Surgeon) in 1-2 weeks. Current Hospital Diet Patient's current hospital diet: Diabetes Type 2 Diet Discharge Diet Recommended Diet: Diabetes Type 2 Diet, Low Fiber Diet (for 2 weeks, then transition back to a high fiber diet) Procedures Procedures Performed: CT abdomen/pelvis Pending Studies Studies pending at discharge: no Medical Emergencies . Who to Call and When: Medical Emergencies: If at any time you feel your situation is an emergency, please call 911 immediately. . Non-Emergent Contact Non-Emergency issues call your: Primary Care Provider, Surgeon Call Non-Emergent contact if: you have a fever, your pain is not controlled, your pain is worsening, your pain is unusual for you, your pain is concerning you, you have any medication questions you have nausea or vomiting . . "Provider Documentation" section prepared by Lesia Martini. . VTE Core Measure Inpt VTE Proph given/why not?: SCD's
--- NOTE | 2017-07-31 19:29 | Discharge Summary ---
Discharge Summary Date of Service Jul 31, 2017. Discharge Summary Admission Date: Jul 28, 2017 at 18:26 Discharge Date: Jul 31, 2017 Discharge Disposition: Home Principal Diagnosis: Acute diverticulitis with microperforation Problems/Secondary Diagnoses: Gout HTN HPL DMII COPD Immunizations: Have You Had Influenza Vaccine: No History of Tetanus Vaccine?: No History of Pneumococcal: No History of Hepatitis B Vaccine: No Procedures: CT abdomen/pelvis: ABDOMEN AND PELVIS CT WITH IV AND ORAL CONTRAST CT DOSE: 748.95 mGy.cm HISTORY: LOWER ABD PAIN TECHNIQUE: Multiaxial CT images of the abdomen and pelvis were performed following the use of intravenous and oral contrast. A dose lowering technique was utilized adhering to the principles of ALARA. COMPARISON STUDY: None. FINDINGS: Punctate calcification within the base of the right lower lobe. The left lung base is clear. Mild hepatic steatosis. The gallbladder, spleen, adrenal glands, pancreas, and left kidney are unremarkable. A 7 mm hypodensity within the right kidney is too small to characterize. Bladder is underdistended but appears unremarkable. Focal area of thickening within the mid sigmoid colon with an inflamed diverticulum consistent with acute diverticulitis. There is an adjacent 1.7 cm focus of extraluminal gas. This is consistent with a microperforation/developing abscess. Normal appendix. No retroperitoneal lymphadenopathy. IMPRESSION: Sigmoid diverticulitis with an adjacent 1.7 cm focus of extraluminal gas. This consistent with a microperforation/developing abscess. Consultations: General Surgery Medication Reconciliation New Medications: Ciprofloxacin (Ciprofloxacin HCl) 500 Mg Tab 500 MG PO BID for 6 Days, #12 TAB Metronidazole (Metronidazole) 500 Mg Tab 500 MG PO TID for 6 Days, #18 TAB Continued Medications: Albuterol (Ventolin Hfa) 60 Puffs/5400 Mcg Aers 2 PUFFS INH UD PRN for Rescue/COPD Allopurinol (Zyloprim) 100 Mg Tab 100 MG PO DAILY, TAB Metformin Hcl (Glucophage) 500 Mg Tab 500 MG PO DAILY, TAB Montelukast Sodium (Singulair) 10 Mg Tab 10 MG PO DAILY, TAB Multiple Vitamin (Multivitamin) 1 Tab Tab 1 TAB PO DAILY, TAB Olmesartan/Hctz (Benicar Hct 40/12.5) Tab 1 TAB PO DAILY, TAB Pravastatin Sodium (Pravastatin Sodium) 10 Mg Tab 10 MG PO DAILY, TAB Discontinued Medications: Ibuprofen Tab (Advil) 200 Mg Tab 200 MG PO UD PRN for Pain or Fever, TAB TAKE PER PACKAGE DIRECTIONS Referrals At Discharge Follow up Referrals: Physician Referral - Within 1-2 Weeks with Angie Degroot PA-C Surgery Referral - Within 1-2 Weeks with Duong Vera M.D. Discharge Exam Feeling great today. Diet was advanced by Surgery this AM and he tolerated lunch and dinner without problems. No abd pain. Denies headache/CP/SOB, is moving his bowels, no hematochezia. Is making urine without problems. Was switched to po abx and tolerating well Review of Systems: Constitutional: No fever, No chills Eyes: No problem reported ENT: No problem reported Respiratory: No shortness of breath Cardiovascular: No chest pain Abdomen: No pain, No nausea, No vomiting, No diarrhea, No constipation, No GI bleeding Musculoskeletal: No problem reported Genitourinary - Male: No problem reported Neurologic: No problem reported Psychiatric: No problem reported Endocrine: No problem reported Hematologic / Lymphatic: No problem reported Integumentary: No problem reported Physical Exam: General Appearance: WD/WN, no apparent distress Eyes: normal inspection, sclerae normal ENT: hearing grossly normal Neck: trachea midline Respiratory/Chest: lungs clear, normal breath sounds, no respiratory distress, no accessory muscle use Cardiovascular: regular rate, rhythm, no edema, no gallop, no murmur Abdomen / GI: normal bowel sounds, non tender, soft, no organomegaly, no pulsatile mass Extremities: normal inspection, no calf tenderness, normal capillary refill , no pedal edema Neurologic/Psychiatric: alert, normal mood/affect, oriented x 3 Skin: normal color, warm/dry, no rash Hospital Course 57 y/o M Hx gout, HTN, HPL, DM, COPD. Presenting with intermittent LLQ abdominal pain x one week - denies fevers/rigors, nausea or vomiting. Has had a few episodes of diarrhea. A CT was obtained in the ER and is consistent with diverticulitis. There is concern for microperforation and developing abscess as well. Diverticulitis with microperforation and abscess Admitted to medical floor No hx of diverticulitis or bowel surgery in the past Placed on Zosyn x 4 days and had great improvement. He had no further pain, was moving his bowels normally, and was tolerating a regula diet at the time of discharge. He was switched to PO cipro and flagyl and tolerated well on day of discharge. General surgery consulted and recommended observation and antibiotics as above. Appreciate their recommendations--> f/u with Surgery in 1-2 weeks as outpt DMII - Controlled on ISS while here, switch back to po metformin on dc COPD - No evidence of acute exacerbation, cont singulair HTN - Benicar (40/12.5) held initially,then restarted as BPs were uncontrolled. BPs acceptable then at time of dc -f/u with PCP Gout - cont Allopurinol 100 mg PO daily, no acute flares HPL - cont Pravastatin 10 mg PO daily. Discharged to home in good condition Total Time Spent: Greater than 30 minutes This includes examination of the patient, discharge planning, medication reconciliation, and communication with other providers. Discharge Instructions Please refer to the electronic Patient Visit Report (Discharge Instructions) for additional information. Follow-Up PCP within 1-2 weeks General Surgery within 1-2 weeks Additional Copies To Angie Degroot PA-C; Duong Vera M.D.
[2017-07-31] MEDS ORDERED: CIPROFLOXACIN 500 MG TAB PO SCH (21:00)
== END 2017-07-31 19:48 | disposition home or self-care (01) | DRG 392 ==
LOC: C.EDB 14:01 → C.MSN 18:26 → ENRESERV 18:53
PROVIDERS: ADMIT Internal Medicine; ATTEND Family Medicine
DX: K57.20 Diverticulitis of large intestine with perforation and abscess without bleeding (principal); I10 Essential (primary) hypertension; E11.9 Type 2 diabetes mellitus without complications; M10.9 Gout, unspecified; J44.9 Chronic obstructive pulmonary disease, unspecified; Z79.899 Other long term (current) drug therapy; Z79.84 Long term (current) use of oral hypoglycemic drugs; Z82.49 Family history of ischemic heart disease and other diseases of the circulatory system

== ENCOUNTER → 2017-07-28 | Outpatient (CLI) | payer BC ==
[~2017-07-28] MED LIST: ALLO100T PO; CPR500 PO; GLC/500 PO; IBUP-103 PO; MONT1TAB3 PO; MTR500 PO; MULTTAB58 PO; OLME40TA30 PO; OPTIRAY 320 IV PRN; PRAV10TA39 PO; PRVHFAIN INH; UNIRETIC
--- NOTE | 2017-07-28 08:29 | DIAGNOSTIC IMAGING REPORT ---
ABDOMEN AND PELVIS CT WITH IV AND ORAL CONTRAST CT DOSE: 748.95 mGy.cm HISTORY: LOWER ABD PAIN TECHNIQUE: Multiaxial CT images of the abdomen and pelvis were performed following the use of intravenous and oral contrast. A dose lowering technique was utilized adhering to the principles of ALARA. COMPARISON STUDY: None. FINDINGS: Punctate calcification within the base of the right lower lobe. The left lung base is clear. Mild hepatic steatosis. The gallbladder, spleen, adrenal glands, pancreas, and left kidney are unremarkable. A 7 mm hypodensity within the right kidney is too small to characterize. Bladder is underdistended but appears unremarkable. Focal area of thickening within the mid sigmoid colon with an inflamed diverticulum consistent with acute diverticulitis. There is an adjacent 1.7 cm focus of extraluminal gas. This is consistent with a microperforation/developing abscess. Normal appendix. No retroperitoneal lymphadenopathy. IMPRESSION: Sigmoid diverticulitis with an adjacent 1.7 cm focus of extraluminal gas. This consistent with a microperforation/developing abscess. Electronically signed by: North Nguyen M.D. 07/28/2017 8:28 AM Dictated Date/Time: 07/28/2017 8:22 AM
== END ==
LOC: C.CTS 05:24
PROVIDERS: ATTEND Physician Assistant
DX: K57.32 Diverticulitis of large intestine without perforation or abscess without bleeding (principal)

== ENCOUNTER → 2017-09-06 | Day surgery (SDC) | payer BC ==
[2017-08-27 09:51] VITALS: BMI 32.0
[~2017-09-06] VITALS: Ht 177.8 cm; Wt 102.3 kg
[~2017-09-06] MED LIST changes: +ALLO100T PO; +GLC/500 PO; +LIDOCAINE HCL 2% 2 ML VIAL (20MG/ML) ONE; +MONT1TAB3 PO; +MULTTAB58 PO; +OLME40TA30 PO; +PRAV10TA39 PO; +PROPOFOL IV EMULSION 10 MG/ML 20 ML VIAL IV ONE; +PRVHFAIN INH; +SODIUM CHLORIDE 0.9% 500ML 500 ML IV ONE; -UNIRETIC
[2017-09-06 11:18] VITALS: Ht 177.8 cm; Wt 102.3 kg
--- NOTE | 2017-09-06 12:26 | Endo History and Physical ---
History & Physical Date of Service: Sep 06, 2017. Chief Complaint: Followup for recent diverticulitis with perforation Referring Physician: DR CHRISTIANSON History of Present Illness 57 yo CM who presents for colonoscopy for followup of recent diverticulitis with perforation. Past Surgical History Hx Cardiac Surgery: No Hx Internal Defibrillator: No Hx Pacemaker: No Hx Abdominal Surgery: No Hx of Implantable Prosthesis: No Hx Post-Op Nausea and Vomiting: No Hx Cancer Surgery: No Hx Thoracic Surgery: No Hx Orthopedic: No Hx Urinary Tract Surgery: No Family History None Social History Smoking Status: Never Smoker Hx Substance Use: No Hx Alcohol Use: No Allergies Coded Allergies: No Known Allergies (Verified , 09/06/17) Current Medications Reported Home Medications Medications Dose Route/Sig Max Daily Dose Days Date Category Ventolin Hfa (Albuterol) 60 Puffs/5400 Mcg Aers 2 Puffs INH UD PRN 07/28/17 Reported Singulair (Montelukast Sodium) 10 Mg Tab 10 Mg PO QAM 07/28/17 Reported Pravastatin Sodium 10 Mg Tab 10 Mg PO HS 07/28/17 Reported Multivitamin (Multiple Vitamin) 1 Tab Tab 1 Tab PO QAM 07/28/17 Reported Glucophage (Metformin Hcl) 500 Mg Tab 500 Mg PO QAM 07/28/17 Reported Benicar Hct 40/12.5 (Olmesartan/HCTZ) Tab 1 Tab PO QAM 07/28/17 Reported Zyloprim (Allopurinol) 100 Mg Tab 100 Mg PO QAM 07/28/17 Reported Vital Signs Weight (Kilograms): 102.27 Height (Feet): 5 Height (Inches): 10 Date Time Temp Pulse Resp B/P (MAP) Pulse Ox O2 Delivery O2 Flow Rate FiO2 09/06/17 11:28 36.7 72 18 163/93 (116) 95 Room Air Physical Exam General Appearance: WD/WN, no apparent distress Respiratory/Chest: Auscultation: breath sounds normal Cardiovascular: Heart Auscultation: RRR Abdomen: Bowel Sounds: normal Inspection & Palpation: soft, non-distended, no tenderness, guarding & rebound Assessment and Plan Assessment: 57 yo CM who presents for colonoscopy for followup of recent diverticulitis with perforation. Plan: Proceed with colonoscopy.
--- NOTE | 2017-09-06 12:46 | GI REPORT ---
Procedure Date: 09/06/2017 12:16 PM Procedure: Colonoscopy Indications: Follow-up of diverticulitis Medicines: Monitored Anesthesia Care Complications: No immediate complications. Estimated Blood Loss: Estimated blood loss: none. Procedure: Pre-Anesthesia Assessment: - Prior to the procedure, a History and Physical was performed, and patient medications and allergies were reviewed. The patient's tolerance of previous anesthesia was also reviewed. The risks and benefits of the procedure and the sedation options and risks were discussed with the patient. All questions were answered, and informed consent was obtained. Prior Anticoagulants: The patient has taken no previous anticoagulant or antiplatelet agents. ASA Grade Assessment: III - A patient with severe systemic disease. After reviewing the risks and benefits, the patient was deemed in satisfactory condition to undergo the procedure. After I obtained informed consent, the scope was passed under direct vision. Throughout the procedure, the patient's blood pressure, pulse, and oxygen saturations were monitored continuously. The scope was introduced through the anus and advanced to the terminal ileum. The colonoscopy was performed without difficulty. The patient tolerated the procedure well. The quality of the bowel preparation was good. The terminal ileum, ileocecal valve, appendiceal orifice, and rectum were photographed. Findings: The perianal and digital rectal examinations were normal. Multiple small-mouthed diverticula were found in the sigmoid colon. Non-bleeding internal hemorrhoids were found during retroflexion. The hemorrhoids were small. Impression: - Diverticulosis in the sigmoid colon. - Non-bleeding internal hemorrhoids. - No specimens collected. Recommendation: - Resume previous diet. - Continue present medications. - Repeat colonoscopy in 10 years for surveillance. - Return to primary care physician as previously scheduled. Gabino Evans, 09/06/2017 12:46:09 PM This report has been signed electronically. Note Initiated On: 09/06/2017 12:16 PM I attest to the content of the Intraoperative Record and orders documented therein, exceptions below
--- NOTE | 2017-09-06 12:49 | Discharge Instructions ---
Endoscopy Patient Instructions Date / Procedure(s) Performed Sep 06, 2017. Colonoscopy Allergy Information Coded Allergies: No Known Allergies (Verified , 09/06/17) Discharge Date / Findings Sep 06, 2017. Diverticulosis Internal hemorrhoids Medication Instructions Stopped Medication(s): METFORMIN MVI OK to resume all medications today as prescribed Reported Home Medications Medications Dose Route/Sig Max Daily Dose Days Date Category Ventolin Hfa (Albuterol) 60 Puffs/5400 Mcg Aers 2 Puffs INH UD PRN 07/28/17 Reported Singulair (Montelukast Sodium) 10 Mg Tab 10 Mg PO QAM 07/28/17 Reported Pravastatin Sodium 10 Mg Tab 10 Mg PO HS 07/28/17 Reported Multivitamin (Multiple Vitamin) 1 Tab Tab 1 Tab PO QAM 07/28/17 Reported Glucophage (Metformin Hcl) 500 Mg Tab 500 Mg PO QAM 07/28/17 Reported Benicar Hct 40/12.5 (Olmesartan/HCTZ) Tab 1 Tab PO QAM 07/28/17 Reported Zyloprim (Allopurinol) 100 Mg Tab 100 Mg PO QAM 07/28/17 Reported Provider Instructions Activity Restrictions - No exercising or heavy lifting for 24 hours. - Do not drink alcohol the day of the procedure. - Do not drive a car or operate machinery until the day after the procedure. - Do not make any important decisions or sign important papers in 24 hours after the procedure. Following Day: - Return to full activity which may include returning to work/school. Diet Start your diet with liquids and light foods (jello, soup, juice, toast). Then eat your usual diet if not nauseated. Treatment For Common After Affects For mild abdominal pain, bloating, or excessive gas: - Rest - Eat lightly - Lie on right side Follow-Up Information Follow-up with DR CHRISTIANSON as scheduled Anesthesia Information What You Should Know You have had a procedure that required some medicine to reduce anxiety and discomfort. This treatment is called moderate sedation. After receiving the treatment, you may be sleepy, but you will be able to breathe on your own. The effects of the treatment may last for several hours. Follow these instructions along with Activity/Diet recommendations noted above: * Do NOT do anything where dizziness or clumsiness would be dangerous. * Rest quietly at home today, then you can be up and about tomorrow. * Have a responsible person stay with you the rest of today. * You may have had an I.V. today. If so, you may take the dressing off later today. Recommendations Call your doctor if: * Trouble breathing * Continuous vomiting for more than 24 hours * Temperature above 101 degrees * Severe abdominal pain or bloating * Pain not relieved by pain medicine ordered * There is increased drainage or redness from any incision * A large amount of rectal bleeding greater than 2-3 tablespoons. (If you had a polyp/s removed or have hemorrhoids, a small amount of blood - from the rectum is to be expected.) * You have any unanswered questions or concerns. IN THE EVENT OF A SERIOUS EMERGENCY, GO TO THE NEAREST EMERGENCY ROOM Your discharge instructions were prepared by provider Gabino Evans. Patient Instructions Signature Page Azael Mckeon Patient (or Guardian) Signature/Date: I have read and understand the instructions given to me by my caregivers. Caregiver/RN/Doctor Signature/Date: The above-named patient and/or guardian has received patient instructions on this date. + Original Patient Signature Page (only) stays with chart. Please make copy for patient.
[2017-09-06 13:16] VITALS: BP 149/96; PULSE 66; O2SAT 95
--- NOTE | 2017-09-06 13:29 | Anesthesiology Progress Note ---
Anesthesia Post Op Note Date & Time Sep 06, 2017 at 13:28 Vital Signs Pain Intensity: 0 Vital Signs Past 12 Hours Date Time Temp Pulse Resp B/P (MAP) Pulse Ox O2 Delivery O2 Flow Rate FiO2 09/06/17 13:16 66 20 149/96 (113) 95 Room Air 09/06/17 13:01 66 20 108/75 (86) 95 Room Air 09/06/17 12:48 73 16 97/64 (75) 95 Room Air 09/06/17 11:28 36.7 72 18 163/93 (116) 95 Room Air Notes Mental Status: alert / awake / arousable, participated in evaluation Pt Amnestic to Procedure: Yes Nausea / Vomiting: adequately controlled Pain: adequately controlled Airway Patency, RR, SpO2: stable & adequate BP & HR: stable & adequate Hydration State: stable & adequate Anesthetic Complications: no major complications apparent
== END | disposition home or self-care (01) ==
LOC: C.GI 11:11
PROVIDERS: ATTEND Internal Medicine
DX: Z09 Encounter for follow-up examination after completed treatment for conditions other than malignant neoplasm (principal); K57.30 Diverticulosis of large intestine without perforation or abscess without bleeding; K64.8 Other hemorrhoids

== ENCOUNTER 2019-09-04 05:14 | Inpatient (IN) ==
--- NOTE | 2019-08-24 10:25 | Anesthesiology Consultation ---
Date of Service August 24, 2019 Assessment & Plan (1) Encounter for pre-operative examination: - Check BSG AM DOS Chart Review Chart Review: Pending: Refer to Additional Notes / Consult section (pending preop testing (labs, EKG)) and Patient seen in Pre Admission Testing Teaching & Discussion Pre-Anesthesia Teaching/Discussion Notes: Instructed NPO after midnight before surgery,except medications with 15 cc of water. Medication instructions provided according to the PAT guidelines. History Surgery Operation Date: 09/04/19 07:00 Proposed Procedures p Laparoscopic-Assisted Sigmoid Colon Resection - Duong Vera MD, FACS Height/Weight Height: 5 ft 9 in Weight: 105.4 kg Allergies Allergy/AdvReac Type Severity Reaction Status Date / Time tiotropium AdvReac Intermediate Breathing Verified 08/16/19 12:00 [From Spiriva with Difficulties HandiHaler] atorvastatin AdvReac Unknown ELEVATED Verified 08/16/19 12:00 LIVER ENZYMES ezetimibe [From Zetia] AdvReac Unknown MUSCLE Verified 08/16/19 12:00 WEAKNESS simvastatin [From Zocor] AdvReac Unknown MUSCLE Verified 08/16/19 12:00 WEAKNESS Medications Home Medications Medication Instructions Recorded Confirmed Last Taken allopurinol 300 mg PO HS 07/05/19 08/16/19 07/04/19 calcipotriene 1 applic TOPICAL BID 07/05/19 08/16/19 07/04/19 metformin 500 mg PO BID 07/05/19 08/16/19 07/04/19 montelukast 10 mg PO HS 07/05/19 08/16/19 07/04/19 multivitamin 1 tab PO QAM 07/05/19 08/16/19 07/04/19 olmesartan-hydrochlorothiazide 1 tab PO QAM 07/05/19 08/16/19 07/04/19 triamcinolone acetonide 1 applic TOPICAL BID 07/05/19 08/16/19 07/04/19 umeclidinium [Incruse Ellipta] 1 inh INHALATION HS 07/05/19 08/16/19 07/03/19 metronidazole 500 mg tablet 500 mg PO .COMPLEX #3 tab 08/17/19 Unknown neomycin 500 mg tablet 1 gm PO .COMPLEX #6 tab 08/17/19 Unknown Past Medical History Medical History COPD (chronic obstructive pulmonary disease) stable HTN (hypertension) History of diverticulitis espisode 07/26/19 s/p abx History of gout Hypercholesteremia Obesity Psoriasis Type 2 diabetes mellitus NIDDM Exercise / Class Metabolic Activity II 4-5 Yardwork/Stairs/Walk up hill Past Family History Family History Father Family history of diabetes mellitus (DM) Past Surgical History Surgical History History of colonoscopy History of ear surgery L - "REPLACING LITTLE BONES WITH CARTILAGE" Past Anesthesia History No Hx of Anesthesia Complications and No Family Hx of Anesthesia Complications History of PONV No Hx of PONV and No Hx of Motion Sickness Social History Smoking Status: Never smoker Do You Dip or Chew Tobacco: No Hx Alcohol Use: No Hx Substance Use: No substance use type: does not use Review of Systems Patient denies chest pain, shortness of breath, dyspnea on exertion, reflux, cough, wheezing, palpitations. Physical Exam Vital Signs VITALS BP 132/81 P 78 TEMP 98.2 SP02 93%RA RESP 18 PHYSICAL Full neck and c-spine range of motion. Full TMJ range of motion. TMD 3.5 finger breaths Mallampati Score 2 Dentition: intact, upper right false tooth "glued in" Lungs: clear throughout to auscultation Cardiac: regular rate and rhythm, no murmurs noted Spine: normal Carotid arteries: negative bruit Extremities: no edema Testing Laboratory Results 07/05/19 SODIUM 137 POTASSIUM 3.9 CHLORIDE 103 CO2 26 BUN 14 CREATININE 1.17 GLUCOSE 126
--- NOTE | 2019-08-24 10:36 | PAT Medication Instructions ---
Medication Instructions Date of Service August 24, 2019 Home Medications Medication Instructions Recorded metronidazole 500 mg tablet 500 mg PO .COMPLEX #3 tab 08/17/19 neomycin 500 mg tablet 1 gm PO .COMPLEX #6 tab 08/17/19 allopurinol 300 mg PO HS 07/05/19 [History Confirmed 08/16/19] calcipotriene 1 applic TOPICAL BID 07/05/19 [History Confirmed 08/16/19] metformin 500 mg PO BID 07/05/19 [History Confirmed 08/16/19] montelukast 10 mg PO HS 07/05/19 [History Confirmed 08/16/19] multivitamin 1 tab PO QAM 07/05/19 [History Confirmed 08/16/19] olmesartan-hydrochlorothiazide 1 tab PO QAM 07/05/19 [History Confirmed 08/16/19] triamcinolone acetonide 1 applic TOPICAL BID 07/05/19 [History Confirmed 08/16/19] umeclidinium [Incruse Ellipta] 1 inh INHALATION HS 07/05/19 [History Confirmed 08/16/19] STOP taking 24 hours before surgery calcipotriene 1 applic TOPICAL BID 07/05/19 [History Confirmed 08/16/19] triamcinolone acetonide 1 applic TOPICAL BID 07/05/19 [History Confirmed 08/16/19] DO NOT take the morning of surgery metformin 500 mg PO BID 07/05/19 [History Confirmed 08/16/19] multivitamin 1 tab PO QAM 07/05/19 [History Confirmed 08/16/19] olmesartan-hydrochlorothiazide 1 tab PO QAM 07/05/19 [History Confirmed 08/16/19] Take evening before surgery allopurinol 300 mg PO HS 07/05/19 [History Confirmed 08/16/19] metformin 500 mg PO BID 07/05/19 [History Confirmed 08/16/19] montelukast 10 mg PO HS 07/05/19 [History Confirmed 08/16/19] umeclidinium [Incruse Ellipta] 1 inh INHALATION HS 07/05/19 [History Confirmed 08/16/19] Other Notes If you have any questions please call us at [phone] or [phone] or [phone] or [phone]
[2019-08-24 12:44] LABS: Basophils # (auto) 0.03 K/uL (0-0.2); Basophils % (auto) 0.5 %; Eosinophils # (auto) 0.18 K/uL (0-0.5); Hematocrit (blood only) 43.3 % (42-52); Hemoglobin 14.1 g/dL (14.0-18.0); Immature Granulocytes # (auto) 0.02 K/uL (0.00-0.02); Immature Granulocytes % (auto) 0.3 %; Lymphocytes # (auto) 2.31 K/uL (1.2-3.4); Lymphocytes % (auto) 37.9 %; Mean Corpuscular Hemoglobin 28.7 pg (25-34); Mean Corpuscular Hgb Conc 32.6 g/dL (32-36); Monocytes # (auto) 0.73 K/uL (0.11-0.59); Neutrophils # (auto) 2.82 K/uL (1.4-6.5); Neutrophils % (auto) 46.3 %; Platelet Count 251 K/uL (130-400); RDW Coefficient of Variation 15.2 % (11.5-14.5); RDW Standard Deviation 48.3 fL (36.4-46.3); Red Blood Count 4.92 M/uL (4.7-6.1); White Blood Count 6.09 K/uL (4.8-10.8)
[2019-08-24 13:09] LABS: Estimated Average Glucose 151 mg/dl; Hemoglobin A1C 6.9 % (4.5-5.6)
--- NOTE | 2019-09-04 05:57 | History & Physical Report ---
Date of Service September 04, 2019 Assessment & Plan (1) Acute diverticulitis: Patient is for laparoscopic assisted sigmoid colectomy [facility] General anesthesia Admission to the hospital (2) History of diverticulitis: History of Present Illness Primary Care Provider: SOFÍA Read Patient with a history of recurrent diverticulitis Is hospitalized for contained perforation from diverticulitis He has had recurrent symptoms since that time Allergies Allergy/AdvReac Type Severity Reaction Status Date / Time tiotropium AdvReac Intermediate Breathing Verified 09/04/19 05:37 [From Spiriva with Difficulties HandiHaler] atorvastatin AdvReac Unknown ELEVATED Verified 09/04/19 05:37 LIVER ENZYMES ezetimibe [From Zetia] AdvReac Unknown MUSCLE Verified 09/04/19 05:37 WEAKNESS simvastatin [From Zocor] AdvReac Unknown MUSCLE Verified 09/04/19 05:37 WEAKNESS Home Medications Home Medications Medication Instructions Recorded Confirmed Type allopurinol 300 mg PO HS 07/05/19 09/04/19 History calcipotriene 1 applic TOPICAL BID 07/05/19 09/04/19 History metformin 500 mg PO BID 07/05/19 09/04/19 History montelukast 10 mg PO HS 07/05/19 09/04/19 History multivitamin 1 tab PO QAM 07/05/19 09/04/19 History olmesartan-hydrochlorothiazide 1 tab PO QAM 07/05/19 09/04/19 History triamcinolone acetonide 1 applic TOPICAL BID 07/05/19 09/04/19 History umeclidinium [Incruse Ellipta] 1 inh INHALATION HS 07/05/19 09/04/19 History metronidazole 500 mg tablet 500 mg PO .COMPLEX #3 tab 08/17/19 09/04/19 Rx neomycin 500 mg tablet 1 gm PO .COMPLEX #6 tab 08/17/19 09/04/19 Rx Past Med/Surg History Medical History COPD (chronic obstructive pulmonary disease) stable HTN (hypertension) History of diverticulitis espisode 07/26/19 s/p abx History of gout Hypercholesteremia Obesity Psoriasis Type 2 diabetes mellitus NIDDM Surgical History History of colonoscopy History of ear surgery L - "REPLACING LITTLE BONES WITH CARTILAGE" Family History Father Family history of diabetes mellitus (DM) Social History Preferred Language: Greenlandic Communication Ability: Effective Medical Oncologist Required: No Beliefs That Will Affect Care: None Current Living Situation: Spouse Other Information That Helps Us Care for You: No Feels Safe at Home: Yes Smoking Status: Never smoker Do You Dip or Chew Tobacco: No ; Hx Alcohol Use: No Hx Substance Use: No Review of Systems All systems reviewed & are unremarkable except as noted in HPI & below Physical Exam Constitutional: well developed and well nourished; no acute distress Eyes: + anicteric sclerae Respiratory: normal respiratory effort; no respiratory distress Cardiovascular: Rate/Rhythm: regular rate Gastrointestinal (Abdomen): Percussion/Palpation: abdomen soft Musculoskeletal: Gait: normal gait Skin: no rashes, warm and dry Neurologic: awake Psychiatric: Orientation: alert Results & Data Vital Signs (Past 12 Hours) Vital Signs Temp Pulse Resp BP Pulse Ox 09/04/19 05:41 36.2 C L 86 18 121/75 94
[2019-09-04] MEDS ORDERED: LR 15ML/HR IV SCH (06:00)
[2019-09-04] MEDS ORDERED: cefOXitin 2,000 MG in DEXTROSE 5% 50 ML IV SCH (06:00)
[2019-09-04] MEDS ORDERED: ePHEDrine sulfate 50 MG/ML AMP IV PRN (06:38)
[2019-09-04] MEDS ORDERED: ATROPINE SULFATE 0.1 MG/ML 10ML SYR IV PRN (06:38)
[2019-09-04] MEDS ORDERED: HYDROmorphone INJ 1 MG/ML SYRINGE IV PRN (06:38)
[2019-09-04] MEDS ORDERED: fentaNYL citrate 100 MCG/2 ML VIAL IV PRN (06:38)
[2019-09-04] MEDS ORDERED: ONDANSETRON INJ 2 MG/ML 2 ML VIAL IV PRN ×2 (06:38→10:52)
[2019-09-04] MEDS ORDERED: fentaNYL citrate 100 MCG/2 ML VIAL ONE ×2 (06:54→09:43)
[2019-09-04] MEDS ORDERED: MIDAZOLAM HCL 1 MG/ML 2ML VIAL ONE (06:54)
[2019-09-04] MEDS ORDERED: BUPIVACAINE 0.5 % 5 MG/1 ML MPF 30ML VIAL ONE (07:07)
[2019-09-04] MEDS ORDERED: HYDROmorphone INJ 2 MG/ML SYR/VIAL ONE (08:02)
[2019-09-04] MEDS ORDERED: PHENYLEPHRINE 100MCG/ML 5ML SYR ONE (08:03)
[2019-09-04] MEDS ORDERED: ROCURONIUM BROMIDE 10 MG/ML 5 ML VIAL ONE ×2 (08:03→09:16)
[2019-09-04] MEDS ORDERED: ePHEDrine sulfate 50 MG/ML SYR ONE (08:03)
[2019-09-04] MEDS ORDERED: PROPOFOL IV EMULSION 10 MG/ML 20 ML VIAL IV ONE (08:03)
[2019-09-04] MEDS ORDERED: LIDOCAINE HCL 2% 2 ML VIAL/AMP(20MG/ML) INFIL ONE (08:03)
[2019-09-04] MEDS ORDERED: NEOSTIGMINE METHYLSULFATE 5 MG/5 ML SYR ONE (08:03)
[2019-09-04] MEDS ORDERED: ONDANSETRON INJ 2 MG/ML 2 ML VIAL ONE (08:03)
[2019-09-04] MEDS ORDERED: GLYCOPYRROLATE 0.2 MG/ML VIAL ONE (08:03)
[2019-09-04] MEDS ORDERED: ACETAMINOPHEN 1,000 MG/100 ML VIAL IV ONE (09:35)
--- NOTE | 2019-09-04 09:35 | Post Operative Brief Note ---
PG Immediate Post Op with CF Date of Surgery September 04, 2019 Pre & Post Diagnosis Operation Date: 09/04/19 07:00 Pre-Op Diagnosis: Acute Diverticulitis Post-Op Diagnosis: Acute Diverticulitis umbilical hernia I identified the patient and participated in the time-out.: Yes Procedure Operation Date: 09/04/19 07:00 Actual Procedures p Laparoscopic-Assisted Sigmoid Colon Resection, Umbilical hernia repair - Duong Vera MD, FACS Surgeon Duong Vera MD, FACS Home Support Worker Nina Romo Estimated Blood Loss 30 Findings Consistent with Post-Op Diagnosis Specimens Specimen Description: Permanent Specimen A: Sigmoid Colon, staple line is proximal B: Hernia Tissue Drains Kilgore Catheter, Eugenio-Fitch Drain (15Fr) and Jesus Drain
--- NOTE | 2019-09-04 10:24 | Anesthesiology Progress Note ---
Date of Service September 04, 2019 Anesthesia Post Procedure Vital Signs Vital Signs: Temp Pulse Pulse Resp BP BP Pulse Ox 09/04/19 10:20 83 16 121/79 95 09/04/19 10:10 82 14 137/78 93 09/04/19 10:00 79 14 139/79 92 09/04/19 09:51 36.2 C L 85 16 106/74 94 09/04/19 05:41 36.2 C L 86 18 121/75 94 Transfer of Care Handoff Completed per policy Notes Mental Status: alert / awake / arousable and participated in evaluation Patient Amnestic to Procedure: Yes Nausea / Vomiting: adequately controlled Pain: adequately controlled Airway Patency, RR, SpO2: stable & adequate BP & HR: stable & adequate Hydration State: stable & adequate Anesthetic Complications: no major complications apparent and Pt Satisfied with anesthetic care
[2019-09-04] MEDS ORDERED: HYDROmorphone INJ 2 MG/ML SYR/VIAL IV PRN (10:52)
[2019-09-04] MEDS ORDERED: PROMETHAZINE HCL 25 MG in SODIUM CHLORIDE 0.9% 50 ML IV PRN (10:52)
[2019-09-04] MEDS ORDERED: PROMETHAZINE HCL 12.5 MG in SODIUM CHLORIDE 0.9% 50 ML IV PRN (10:52)
--- NOTE | 2019-09-04 11:14 | Operative Report ---
DATE OF OPERATION: 09/04/2019 NAME OF OPERATION: Laparoscopic assisted sigmoid colon resection with umbilical hernia repair. PREOPERATIVE DIAGNOSIS: History of acute diverticulitis. POSTOPERATIVE DIAGNOSIS: History of acute diverticulitis with umbilical hernia. STAFF SURGEON: Duong Vera MD POOL HALL INSPECTOR: Ilya Romo PA-C ANESTHESIA: General. DESCRIPTION OF PROCEDURE: The patient was brought in the operating room and placed on the operating table in supine position. [place]gore catheter, orogastric tube, pneumatic stockings were placed. My workers compensation claims assistant helped with prepping, draping, resection of the colon, repair of the hernia and closure of the wound. Initially, laparoscopy was performed making an incision just below the umbilicus using 0.5% plain Marcaine to anesthetize skin and subcutaneous tissue. Balloon cannula placed at this level and then under visualization after appropriate pneumoperitoneum, three 5 mm ports were placed, 1 left lower quadrant, 1 right lower quadrant, 1 right upper quadrant. At this point, the left colon and sigmoid colon were mobilized by incising along the left colic gutter, mobilizing the colon medially up to the splenic flexure. We were able to identify the ureter during the dissection. At this point, an open procedure was performed. The patient did have a small umbilical hernia. Incision was made just around the umbilicus and then inferiorly in the midline carrying dissection down into the abdomen. Sigmoid colon was then mobilized. There was an area of distal thickening consistent with his history of diverticulitis with perforation. The descending colon was transected using a MARTIN 80 stapler and then the rectosigmoid transected and then the tissue sent to routine pathology with the staple line proximal. At this point, end-to-end anastomosis was performed in a handsewn fashion with 2 layers, seromuscular layer of 3-0 silk and then a mucosal layer of 2-0 chromic suture. At this point, the abdomen was irrigated with antibiotic solution. A 15 round Eugenio-Fitch drain placed into the pelvis, secured to skin using 3-0 nylon suture, this was through the right lower quadrant port site. At this point, all ports were removed and the abdomen was closed, reapproximating the fascia superiorly at the umbilical hernia site using #1 Ethibond suture, then closing the peritoneum and posterior fascia using running #1 chromic suture, anterior fascia using both running and interrupted #1 PDS suture. [place] drain placed in the subcutaneous space, secured to the skin using 3-0 silk suture. Drain was secured using 3-0 nylon suture. Skin was reapproximated using ambar. The patient was transferred to recovery room in stable condition. I attest to the content of the Intraoperative Record and any orders documented therein. Any exception s are noted below.
[2019-09-04] MEDS: HYDROmorphone INJ 0.5 MG/0.5 ML SYR IV PRN (12:11)
[2019-09-04] MEDS: NSS + 20MEQ KCL 20 MEQ/1,000 ML BAG IV SCH ×2 (12:25→21:35)
[2019-09-04] MEDS: HYDROmorphone INJ 1 MG/ML SYRINGE IV PRN (13:48)
[2019-09-04] MEDS: cefOXitin 2,000 MG in DEXTROSE 5% 50 ML IV SCH ×2 (14:07→21:35)
[2019-09-04] MEDS ORDERED: NALOXONE HCL 0.4 MG/1 ML VIAL/CARP IV PRN (14:40)
[2019-09-04] MEDS ORDERED: GLUCAGON FOR INJ 1 MG VIAL IM PRN (15:00)
[2019-09-04] MEDS ORDERED: GLUCOSE 10 TABS/TUBE PO PRN (15:00)
[2019-09-04] MEDS ORDERED: GLUCOSE 40% GEL 15 GM TUBE PO PRN (15:00)
[2019-09-04] MEDS ORDERED: CARBOHYDRATES FOR HYPOGLYCEMIA PO PRN (15:00)
[2019-09-04] MEDS ORDERED: DEXTROSE 50% 50 ML SYRINGE IV PRN (15:00)
[2019-09-04] MEDS ORDERED: Nursing to Pharmacy Communication ONE (15:07)
--- NOTE | 2019-09-04 15:26 | Consultation ---
Date of Consultation September 04, 2019 Assessment & Plan (1) Type 2 diabetes mellitus: hold metformin use Novolog SS with correction factor 40 and no carb ratio BSG q6 while not eating DM diet once eating monitor for hypoglycemia (2) HTN (hypertension): hold AM meds until BMP is checked typically on ARB and HCTZ (3) Hypercholesteremia: can resume treatment on discharge (4) COPD (chronic obstructive pulmonary disease): no wheezing or distress on exam continue Incruse Ellipta, patient can use his own (5) Psoriasis: continue Triamcinolone and Calcipotriene (6) History of diverticulitis: now presents after sigmoidectomy (7) S/P colon resection: sigmoidectomy due to recurrent diverticulitis pain control with DX BOARD OPERATOR encourage deep breaths with bedside spirometry DVT prophylaxis, diet per Dr. Vera History of Present Illness Requesting Physician: Dr. Vera Reason for Consultation: medical management Attending Physician: Duong Vera MD, FACS History of Present Illness 59 yo male here after undergoing laparoscopic sigmoidectomy with umbilical hernia repair. The sigmoidectomy was performed due to recurrent episodes of sigmoid diverticulitis. The patient tolerated the procedure well, no complications, transferred to the floor in stable condition. He admits to some increased pain in the lower abdominal area, PRN dosing of narcotics was not sufficient and surgery ordered a DX BOARD OPERATOR pump to provide better r elief. He says that he feels like he needs to void but cannot, discussed with him that he has a call catheter in place to keep his bladder drained, those sensations can be normal. No fever or chills, no dyspnea or wheezing, no chest pain or pressure. Denies nausea. He has a h/o DM type II, HTN both of which he reports are well controlled. Also with a h/o psoriasis and he brought his own topical treatments that he wants to continue to use here. He denies a history of smoking or drinking alcohol. He works at [employer] currently. Allergies Allergy/AdvReac Type Severity Reaction Status Date / Time atorvastatin AdvReac Intermediate ELEVATED Verified 09/04/19 06:47 LIVER ENZYMES tiotropium AdvReac Intermediate Breathing Verified 09/04/19 06:47 [From Spiriva with Difficulties HandiHaler] ezetimibe [From Zetia] AdvReac Mild MUSCLE Verified 09/04/19 06:47 WEAKNESS simvastatin [From Zocor] AdvReac Mild MUSCLE Verified 09/04/19 06:47 WEAKNESS Home Medications Home Medications Medication Instructions Recorded Confirmed Type allopurinol 300 mg PO HS 07/05/19 09/04/19 History calcipotriene 1 applic TOPICAL BID 07/05/19 09/04/19 History metformin 500 mg PO BID 07/05/19 09/04/19 History montelukast 10 mg PO HS 07/05/19 09/04/19 History multivitamin 1 tab PO QAM 07/05/19 09/04/19 History olmesartan-hydrochlorothiazide 1 tab PO QAM 07/05/19 09/04/19 History triamcinolone acetonide 1 applic TOPICAL BID 07/05/19 09/04/19 History umeclidinium [Incruse Ellipta] 1 inh INHALATION HS 07/05/19 09/04/19 History metronidazole 500 mg tablet 500 mg PO .COMPLEX #3 tab 08/17/19 09/04/19 Rx neomycin 500 mg tablet 1 gm PO .COMPLEX #6 tab 08/17/19 09/04/19 Rx Patient History Medical History COPD (chronic obstructive pulmonary disease) stable History of diverticulitis espisode 07/26/19 s/p abx History of gout Psoriasis HTN (hypertension) Hypercholesteremia Obesity Type 2 diabetes mellitus NIDDM Surgical History History of colonoscopy History of ear surgery L - "REPLACING LITTLE BONES WITH CARTILAGE" S/P colon resection (09/04/19) Laparoscopic assisted sigmoid colon resection with umbilical hernia repair. Dr. Vera 09/04/19 Family History Father Family history of diabetes mellitus (DM) Social History Preferred Language: Upper Sorbian Communication Ability: Effective Geoscientist Required: No Beliefs That Will Affect Care: None Current Living Situation: Spouse Other Information That Helps Us Care for You: No Feels Safe at Home: Yes Smoking Status: Never smoker Do You Dip or Chew Tobacco: No ; Hx Alcohol Use: No Hx Substance Use: No Review of Systems Review of Systems: All systems reviewed & are unremarkable except as noted in HPI & below Constitutional: no fever, no chills and no sweats Respiratory: no cough and no dyspnea Cardiovascular: no chest pain, no palpitations and no edema Gastrointestinal: + abdominal pain; no nausea, no vomiting, no constipation and no diarrhea/loose stools Genitourinary: no dysuria, no urinary frequency and no urinary hesitancy Physical Exam Constitutional: WD/WN, vitals as above Eyes: PERRL, conjunctivae normal, anicteric sclerae ENMT: external ear and nose normal, oropharynx normal Neck: trachea midline, no thyromegaly Respiratory: normal respiratory effort, lungs clear to auscultation (decreased in bases) Cardiovascular: RRR, no murmur, no edema Gastrointestinal (Abdomen): Inspection/Auscultation: abdomen normal to inspection and + hypoactive bowel sounds Percussion/Palpation: + abdomen tender and abdomen soft; no guarding, abdomen not rigid and no hepatospleno megaly Musculoskeletal: no cyanosis or clubbing, extremities motor strength 5/5 Skin: + rash (several psoriatic rashes) Neurologic: patellar DTR's 2+ bilat, sensation intact and PERRL, EOMI, accommodation nl, no face palsy, no dysarthria Psychiatric: A+Ox3, euthymic affect Lymphatic: no cervical or axillary lymphadenopathy Results & Data Vital Signs (Past 12 Hours) Vital Signs Temp Pulse Pulse Resp BP BP Pulse Ox 09/04/19 15:12 36.5 C 110 H 20 149/77 H 95 09/04/19 13:44 36.6 C 93 H 16 135/88 95 09/04/19 12:50 100 H 17 138/83 93 09/04/19 11:45 97 H 18 138/89 95 09/04/19 11:15 36.5 C 91 H 20 144/80 H 96 09/04/19 10:30 36.3 C L 87 14 137/86 93 09/04/19 10:20 83 16 121/79 95 09/04/19 10:10 82 14 137/78 93 09/04/19 10:00 79 14 139/79 92 09/04/19 09:51 36.2 C L 85 16 106/74 94 09/04/19 05:41 36.2 C L 86 18 121/75 94 PG Care Time/CCT Total # of Minutes Spent Total Time Spent with Patient: Total time spent is greater than 50% in coordination of care (as documented) at patient's floor/unit and/or counseling patient:
[2019-09-04] MEDS ORDERED: INSULIN ASPART 100 UNITS/ML 3 ML PEN SC SCH (16:30)
[2019-09-04] MEDS: HYDROmorphone PCA 30 MG/30 ML IV PRN ×2 (16:34→20:45)
[2019-09-04] MEDS: SODIUM CHLORIDE 0.9% 1000ML 1,000 ML IV SCH (16:51)
[2019-09-04] MEDS: INSULIN ASPART 100 UNITS/ML 3 ML PEN SC SCH (18:18)
[2019-09-04] MEDS: CALCIPOTRIENE TOP SCH (20:49)
[2019-09-04] MEDS: UMECLIDINIUM BROMIDE INH SCH (20:49)
[2019-09-04] MEDS: ACETAMINOPHEN 1,000 MG/100 ML VIAL IV SCH (20:57)
[2019-09-05] MEDS: INSULIN ASPART 100 UNITS/ML 3 ML PEN SC SCH ×4 (00:23→17:55)
[2019-09-05] MEDS: ACETAMINOPHEN 1,000 MG/100 ML VIAL IV SCH ×3 (05:30→22:08)
[2019-09-05] MEDS ORDERED: LORazepam 1 MG/2 ML VIAL IV PRN (05:53)
[2019-09-05 05:56] LABS: Basophils # (auto) 0.01 K/uL (0-0.2); Basophils % (auto) 0.1 %; Eosinophils # (auto) 0.01 K/uL (0-0.5); Eosinophils % (auto) 0.1 %; Hematocrit (blood only) 41.2 % (42-52); Hemoglobin 13.6 g/dL (14.0-18.0); Immature Granulocytes # (auto) 0.02 K/uL (0.00-0.02); Immature Granulocytes % (auto) 0.2 %; Lymphocytes # (auto) 1.38 K/uL (1.2-3.4); Lymphocytes % (auto) 12.1 %; Mean Corpuscular Hemoglobin 29.2 pg (25-34); Mean Corpuscular Volume 88.6 fL (80-100); Mean Platelet Volume 10.1 fL (7.4-10.4); Monocytes # (auto) 1.39 K/uL (0.11-0.59); Monocytes % (auto) 12.2 %; Neutrophils # (auto) 8.61 K/uL (1.4-6.5); Neutrophils % (auto) 75.3 %; Platelet Count 247 K/uL (130-400); RDW Coefficient of Variation 15.2 % (11.5-14.5); RDW Standard Deviation 48.7 fL (36.4-46.3); Red Blood Count 4.65 M/uL (4.7-6.1); White Blood Count 11.42 K/uL (4.8-10.8)
--- NOTE | 2019-09-05 05:58 | Surgery Progress Note ---
Date of Service September 05, 2019 Assessment & Plan (1) H/O colectomy: 09/04/19- sigmoid colectomy mild tachy- bp stable, good ur output, dr demetrice stark- mild distention , decr bs cont ice only, , d/c call, IV meds- has LOAN SERVICES PROFESSIONAL walk in hallway, check labs Results & Data Vital Signs (Past 12 Hours) Vital Signs Temp Pulse Resp BP Pulse Ox 09/05/19 03:30 36.3 C L 109 H 16 118/75 94 09/04/19 23:50 36.9 C 106 H 16 145/89 H 93 09/04/19 20:43 36.9 C 112 H 20 119/71 94 09/04/19 19:43 37.0 C 113 H 15 162/88 H 93 09/04/19 19:13 37.0 C 103 H 20 144/84 H 93 09/04/19 18:45 18 94 09/04/19 18:19 95 H PG Care Time/CCT Total # of Minutes Spent Total Time Spent with Patient: Total time spent is greater than 50% in coordination of care (as documented) at patient's floor/unit and/or counseling patient:
[2019-09-05 06:00] LABS: Albumin Level 3.6 gm/dl (3.4-5.0); BUN Creatinine Ratio 12.5 (10-20); Calcium 8.1 mg/dl (8.5-10.1); Est GFR (African American) 84.4; Est GFR (Non-African American) 72.8; Magnesium 2.1 mg/dl (1.8-2.4); Potassium 4.1 mmol/L (3.5-5.1)
[2019-09-05 06:03] LABS: Bilirubin,Total 0.8 mg/dl (0.2-1); Globulin 3.6 gm/dl (2.5-4.0); Phosphorus 3.7 mg/dl (2.5-4.9); Total Protein 7.2 gm/dl (6.4-8.2)
[2019-09-05] MEDS: cefOXitin 2,000 MG in DEXTROSE 5% 50 ML IV SCH ×3 (06:09→22:08)
[2019-09-05] MEDS: KETOROLAC 30 MG/ML VIAL IV SCH ×3 (06:14→17:53)
[2019-09-05] MEDS: NSS + 20MEQ KCL 20 MEQ/1,000 ML BAG IV SCH ×2 (07:43→17:51)
[2019-09-05] MEDS: MOMETASONE FUROATE NAE SCH (09:13)
[2019-09-05] MEDS: CALCIPOTRIENE TOP SCH ×2 (09:14→21:59)
[2019-09-05] MEDS: HEPARIN SOD 5,000 UNIT/0.5 ML VIAL SQ SCH ×2 (09:15→22:00)
--- NOTE | 2019-09-05 10:32 | Hospitalist Progress Note ---
Date of Service September 05, 2019 Assessment & Plan (1) Type 2 diabetes mellitus: continue to hold metformin but can resume on discharge use Novolog SS with correction factor 40 and no carb ratio BSG q6 while not eating DM diet once eating monitor for hypoglycemia (2) HTN (hypertension): BP low normal without any medications continue to hold Olmesartan HCTZ BMP with normal cr and electrolytes resume BP meds on discharge or can resume if he actually becomes hypertensive (3) Hypercholesteremia: can resume treatment on discharge (4) COPD (chronic obstructive pulmonary disease): no wheezing or distress on exam breathing comfortably on 2L, likely some atelectasis after surgery continue Incruse Ellipta, patient can use his own (5) Psoriasis: continue Triamcinolone and Calcipotriene a few scattered psoriatic rashes (6) History of diverticulitis: now presents after sigmoidectomy (7) S/P colon resection: sigmoidectomy due to recurrent diverticulitis POD 1 pain control with [employer], using a little less frequently encourage deep breaths with bedside spirometry DVT prophylaxis, diet per Dr. Vera still on ice chips only, no flatus yet he is ambulating quite well in the halls will sign off at this time, medically stable, please contact Dr. Crawley if his condition changes Subjective patient OOB in chair, no distress just finished ambulating in the halls appreciate surgery note, just ice chips for time being reviewed labs, WBC 11k, Hb stable, Cr and electrolytes stable no flatus yet, no nausea or vomiting, abdominal pain better with [employer] no chest pain or dyspnea Review of Systems Review of Systems: All systems reviewed & are unremarkable except as noted in HPI & below Constitutional: no fever Gastrointestinal: + abdominal pain (lower, constant, worse with movement) and + constipation (obstipation); no nausea, no vomiting and no diarrhea/loose stools Physical Exam Constitutional: WD/WN, vitals as above Eyes: PERRL, conjunctivae normal, anicteric sclerae ENMT: external ear and nose normal, oropharynx normal Neck: trachea midline, no thyromegaly Respiratory: normal respiratory effort, lungs clear to auscultation (decreased in bases) Cardiovascular: RRR, no murmur, no edema Gastrointestinal (Abdomen): Inspection/Auscultation: abdomen normal to inspection and + hypoactive bowel sounds Percussion/Palpation: + abdomen tender (lower) and abdomen soft; no guarding, abdomen not rigid and no hepatosplenomegaly Musculoskeletal: no cyanosis or clubbing, extremities motor strength 5/5 Skin: + rash (several psoriatic rashes) Neurologic: patellar DTR's 2+ bilat, sensation intact and PERRL, EOMI, accommodation nl, no face palsy, no dysarthria Psychiatric: A+Ox3, euthymic affect Lymphatic: no cervical or axillary lymphadenopathy Results & Data Vital Signs (Past 12 Hours) Vital Signs Temp Pulse Resp BP Pulse Ox 09/05/19 08:26 12 09/05/19 07:31 9 L 09/05/19 07:23 36.9 C 96 H 16 117/71 92 09/05/19 03:30 36.3 C L 109 H 16 118/75 94 09/04/19 23:50 36.9 C 106 H 16 145/89 H 93 Laboratory Results Laboratory Results - last 24 hr 09/04/19 09/04/19 09/04/19 12:08 18:03 23:53 WBC RBC Hgb Hct MCV MCH MCHC RDW Std Deviation RDW Coeff of Johanna Plt Count MPV Immature Gran % (Auto) Neut % (Auto) Lymph % (Auto) [place] % (Auto) Eos % (Auto) Baso % (Auto) Immature Gran # (Auto) Neut # (Auto) Lymph # (Auto) [place] # (Auto) Eos # (Auto) Baso # (Auto) Sodium Potassium Chloride Carbon Dioxide Anion Gap BUN Creatinine Est Cr Clr Drug Dosing Est GFR ( Amer) Est GFR (Non-Af Amer) BUN/Creatinine Ratio Glucose POC Glucose 146 H 151 H 137 H Calcium Phosphorus Magnesium Total Bilirubin AST ALT Alkaline Phosphatase Total Protein Albumin Globulin Albumin/Globulin Ratio 09/05/19 09/05/19 09/05/19 05:08 05:08 05:42 WBC 11.42 H RBC 4.65 L Hgb 13.6 L Hct 41.2 L MCV 88.6 MCH 29.2 MCHC 33.0 RDW Std Deviation 48.7 H RDW Coeff of Johanna 15.2 H Plt Count 247 MPV 10.1 Immature Gran % (Auto) 0.2 Neut % (Auto) 75.3 Lymph % (Auto) 12.1 [place] % (Auto) 12.2 Eos % (Auto) 0.1 Baso % (Auto) 0.1 Immature Gran # (Auto) 0.02 Neut # (Auto) 8.61 H Lymph # (Auto) 1.38 [place] # (Auto) 1.39 H Eos # (Auto) 0.01 Baso # (Auto) 0.01 Sodium 138 Potassium 4.1 Chloride 107 Carbon Dioxide 25 Anion Gap 6.0 BUN 14 Creatinine 1.11 Est Cr Clr Drug Dosing 87.0 Est GFR ( Amer) 84.4 Est GFR (Non-Af Amer) 72.8 BUN/Creatinine Ratio 12.5 Glucose 144 H POC Glucose 139 H Calcium 8.1 L Phosphorus 3.7 Magnesium 2.1 Total Bilirubin 0.8 AST 56 H ALT 170 H Alkaline Phosphatase 61 Total Protein 7.2 Albumin 3.6 Globulin 3.6 Albumin/Globulin Ratio 1.0 Medications Administered Current Inpatient Medications Dextrose (Dextrose 50%) 25 - 50 ml IV UD PRN; Protocol PRN Reason: Hypoglycemia Protocol Stop: 10/04/19 14:59 Glucagon (Glucagen) 1 mg IM UD PRN; Protocol PRN Reason: Hypoglycemia Protocol Stop: 10/04/19 14:59 Glucose (Glucose 40%) 15 - 30 gm PO UD PRN; Protocol PRN Reason: Hypoglycemia Protocol Stop: 10/04/19 14:59 Glucose (Dex4 Glucose) 4 - 8 tabs PO UD PRN; Protocol PRN Reason: Hypoglycemia Protocol Stop: 10/04/19 14:59 Heparin Sodium (Porcine) (Heparin Sodium (Porcine)) 5,000 units SQ Q12 [facility] Stop: 10/05/19 08:59 Last Admin: 09/05/19 09:15 Dose: 5,000 units Documented by: Hydromorphone HCl (Dilaudid) 0.5 mg IV Q3HWA PRN PRN Reason: Pain Stop: 09/18/19 10:51 Last Admin: 09/04/19 12:11 Dose: 0.5 mg Documented by: Hydromorphone HCl (Dilaudid) 1 mg IV Q3HWA PRN PRN Reason: Pain Stop: 09/18/19 10:51 Last Admin: 09/04/19 13:48 Dose: 1 mg Documented by: Hydromorphone HCl (Dilaudid) 2 mg IV Q4HWA PRN PRN Reason: Pain Stop: 09/18/19 10:51 Hydromorphone HCl () 30 mg IV PRN PRN; Protocol PRN Reason: [employer] Pain Titration Stop: 09/18/19 14:39 Last Admin: 09/04/19 20:45 Dose: 30 mg Documented by: Promethazine HCl 25 mg/ Sodium (Chloride) 51 mls @ 204 mls/hr IV Q6H PRN PRN Reason: Nausea And Vomiting Stop: 10/04/19 10:51 Cefoxitin Sodium 2,000 mg/ (Dextrose) 70 mls @ 100 mls/hr IV Q8 [facility] Stop: 09/14/19 13:59 Last Infusion: 09/05/19 07:04 Dose: Infused Documented by: Potassium Chloride/Sodium Chloride (Normal Saline W/20 Meq Kcl) 20 meq in 1,000 mls @ 100 mls/hr IV .Q10H [facility] Stop: 10/04/19 11:14 Last Admin: 09/05/19 07:43 Dose: 100 mls/hr Documented by: Promethazine HCl 12.5 mg/ (Sodium Chloride) 50.5 mls @ 204 mls/hr IV Q6H PRN PRN Reason: Nausea And Vomiting Stop: 10/04/19 10:51 Sodium Chloride (Nss 1000ml) 1,000 mls @ 15 mls/hr IV .Q24H [facility] Stop: 09/18/19 14:40 Last Admin: 09/04/19 16:51 Dose: Not Given Documented by: Acetaminophen (Ofirmev) 1,000 mg in 100 mls @ 400 mls/hr IV Q8 [facility] Stop: 09/07/19 20:29 Last Infusion: 09/05/19 06:12 Dose: Infused Documented by: Lorazepam (Ativan) 1 mg in 2 mls @ 2 mls/min IV Q6HWA PRN PRN Reason: Anxiety Stop: 10/05/19 05:52 Insulin Aspart (Novolog Flexpen) 0 units SC Q6 [facility] Stop: 10/04/19 17:59 Last Admin: 09/05/19 06:01 Dose: Not Given Documented by: Ketorolac Tromethamine (Toradol) 30 mg IV Q6H [facility] Stop: 09/10/19 05:59 Last Admin: 09/05/19 06:14 Dose: 30 mg Documented by: Miscellaneous (Carbohydrates For Hypoglycemia) 15 - 30 gm PO UD PRN PRN Reason: Hypoglycemia Treatment Stop: 10/04/19 14:59 Mometasone Furoate (Nasonex) 2 sprays ANGEL DAILY [facility] Stop: 10/05/19 08:59 Last Admin: 09/05/19 09:13 Dose: 2 sprays Documented by: Naloxone HCl (Narcan) 0.1 mg IV Q5M PRN; Protocol PRN Reason: Oversedation/Resp Depression Stop: 09/18/19 14:39 Calcipotriene Cream~ ~Non-Formulary Patient's Own Med 1 ea TOP BID [facility] Stop: 10/04/19 20:59 Last Admin: 09/05/19 09:14 Dose: 1 appln Documented by: Ondansetron HCl (Zofran) 4 mg IV 4XDQ4H PRN PRN Reason: Nausea Stop: 10/04/19 10:51 Umeclidinium [place] (Incruse Ellipta) 1 ea INH DAILY@1999 [facility] Stop: 10/04/19 19:59 Last Admin: 09/04/19 20:49 Dose: Not Given Documented by: PG Care Time/CCT Total # of Minutes Spent Total Time Spent with Patient: Total time spent is greater than 50% in coordination of care (as documented) at patient's floor/unit and/or counseling patient:
[2019-09-05] MEDS: SODIUM CHLORIDE 0.9% 1000ML 1,000 ML IV SCH (12:54)
[2019-09-05] MEDS: UMECLIDINIUM BROMIDE INH SCH (21:30)
[2019-09-06] MEDS: KETOROLAC 30 MG/ML VIAL IV SCH ×5 (00:14→23:14)
[2019-09-06] MEDS: INSULIN ASPART 100 UNITS/ML 3 ML PEN SC SCH ×4 (00:48→18:23)
[2019-09-06] MEDS: NSS + 20MEQ KCL 20 MEQ/1,000 ML BAG IV SCH ×3 (03:44→23:12)
[2019-09-06] MEDS: ACETAMINOPHEN 1,000 MG/100 ML VIAL IV SCH ×4 (05:33→21:18)
[2019-09-06] MEDS: cefOXitin 2,000 MG in DEXTROSE 5% 50 ML IV SCH ×3 (05:41→21:18)
--- NOTE | 2019-09-06 07:04 | Progress Note ---
Date of Service September 06, 2019 Assessment & Plan (1) H/O colectomy: some bloating, ur retention- call back in less pain - using CH[employer] abd- mod distention, dec bs, drain serosang cont npo, ice, popsicles check labs- mobilize- walk in hallway- NG if vomits- doubt will be needed ask Urology to see re- urinary retention Results & Data Vital Signs (Past 12 Hours) Vital Signs Temp Pulse Pulse Resp BP Pulse Ox 09/06/19 03:30 36.8 C 88 16 165/88 H 96 09/06/19 00:13 37.2 C 90 14 148/87 H 95 09/05/19 23:21 37.2 C 89 18 149/80 H 92 09/05/19 19:23 37.1 C 93 H 18 150/87 H 92 PG Care Time/CCT Total # of Minutes Spent Total Time Spent with Patient: Total time spent is greater than 50% in coordination of care (as documented) at patient's floor/unit and/or counseling patient:
[2019-09-06 07:40] LABS: BUN Creatinine Ratio 11.4 (10-20); Calcium 8.3 mg/dl (8.5-10.1); Creatinine Clr Calc Pharmacy 79.2 ml/min; Est GFR (African American) 75.3; Est GFR (Non-African American) 64.9; Magnesium 2.2 mg/dl (1.8-2.4); Potassium 4.5 mmol/L (3.5-5.1)
[2019-09-06 07:49] LABS: Albumin Globulin Ratio 0.8 (0.9-2); Bilirubin,Total 0.6 mg/dl (0.2-1); Globulin 3.7 gm/dl (2.5-4.0); Phosphorus 2.2 mg/dl (2.5-4.9); Total Protein 6.7 gm/dl (6.4-8.2)
[2019-09-06] MEDS ORDERED: TAMSULOSIN HCL 0.4 MG CAP PO ONE (08:05)
--- NOTE | 2019-09-06 08:05 | Urology Consultation ---
Date of Consultation September 06, 2019 Assessment & Plan (1) Urinary retention: Postop urinary retention Likely combination of BPH as well as anesthesia/pain medication and limited mobility Start tamsulosin now Voiding trial prior to DC home presuming it is longer than 48 hours from now If discharged home happens prior to that time we will plan for voiding trial in the office History of Present Illness Attending Physician: Duong Vera MD, FACS History of Present Illness Postop urinary retention after sigmoid colectomy denies any prior urinary issues No Flomax or other medications before surgery No pain or hematuria Tolerating his catheter well Attempted a voiding trial yesterday but failed resulting in replacement of catheter Allergies Allergy/AdvReac Type Severity Reaction Status Date / Time atorvastatin AdvReac Intermediate ELEVATED Verified 09/04/19 06:47 LIVER ENZYMES tiotropium AdvReac Intermediate Breathing Verified 09/04/19 06:47 [From Spiriva with Difficulties HandiHaler] ezetimibe [From Zetia] AdvReac Mild MUSCLE Verified 09/04/19 06:47 WEAKNESS simvastatin [From Zocor] AdvReac Mild MUSCLE Verified 09/04/19 06:47 WEAKNESS Home Medications Home Medications Medication Instructions Recorded Confirmed Type allopurinol 300 mg PO HS 07/05/19 09/04/19 History calcipotriene 1 applic TOPICAL BID 07/05/19 09/04/19 History metformin 500 mg PO BID 07/05/19 09/04/19 History montelukast 10 mg PO HS 07/05/19 09/04/19 History multivitamin 1 tab PO QAM 07/05/19 09/04/19 History olmesartan-hydrochlorothiazide 1 tab PO QAM 07/05/19 09/04/19 History triamcinolone acetonide 1 applic TOPICAL BID 07/05/19 09/04/19 History umeclidinium [Incruse Ellipta] 1 inh INHALATION HS 07/05/19 09/04/19 History metronidazole 500 mg tablet 500 mg PO .COMPLEX #3 tab 08/17/19 09/04/19 Rx neomycin 500 mg tablet 1 gm PO .COMPLEX #6 tab 08/17/19 09/04/19 Rx Patient History Medical History COPD (chronic obstructive pulmonary disease) stable History of diverticulitis espisode 07/26/19 s/p abx History of gout HTN (hypertension) Hypercholesteremia Obesity Psoriasis Type 2 diabetes mellitus NIDDM Surgical History History of colonoscopy History of ear surgery L - "REPLACING LITTLE BONES WITH CARTILAGE" S/P colon resection (09/04/19) Laparoscopic assisted sigmoid colon resection with umbilical hernia repair. Dr. Vera 09/04/19 Family History Father Family history of diabetes mellitus (DM) Social History Preferred Language: Slovak Communication Ability: Effective Ballet Teacher Required: No Beliefs That Will Affect Care: None marital status: Current Living Situation: Spouse Other Information That Helps Us Care for You: No Feels Safe at Home: Yes Smoking Status: Never smoker Do You Dip or Chew Tobacco: No ; Hx Alcohol Use: No Hx Substance Use: No Review of Systems Review of Systems: All systems reviewed & are unremarkable except as noted in HPI & below Physical Exam Physical Exam: NAD AAOx3 no resp distress - NC O2 in place abd soft, incisions appropriate catheter in place - clear urine no edema no rashes moving all extremities Results & Data Vital Signs (Past 12 Hours) Vital Signs Temp Pulse Pulse Resp BP Pulse Ox 09/06/19 07:58 36.9 C 89 14 124/62 92 09/06/19 03:30 36.8 C 88 16 165/88 H 96 09/06/19 00:13 37.2 C 90 14 148/87 H 95 09/05/19 23:21 37.2 C 89 18 149/80 H 92 PG Care Time/CCT Total # of Minutes Spent Total Time Spent with Patient: Total time spent is greater than 50% in coordination of care (as documented) at patient's floor/unit and/or counseling patient:
[2019-09-06] MEDS: HEPARIN SOD 5,000 UNIT/0.5 ML VIAL SQ SCH ×2 (09:00→19:56)
[2019-09-06] MEDS: MOMETASONE FUROATE NAE SCH (09:00)
[2019-09-06] MEDS: CALCIPOTRIENE TOP SCH ×2 (09:00→21:17)
[2019-09-06] MEDS: SODIUM CHLORIDE 0.9% 1000ML 1,000 ML IV SCH (13:58)
[2019-09-06] MEDS ORDERED: SODIUM PHOSPHATE 9 MMOL in SODIUM CHLORIDE 0.9% 250 ML IV STA (15:12)
[2019-09-06] MEDS: TAMSULOSIN HCL 0.4 MG CAP PO SCH (19:56)
[2019-09-06] MEDS: UMECLIDINIUM BROMIDE INH SCH (21:16)
[2019-09-07] MEDS: INSULIN ASPART 100 UNITS/ML 3 ML PEN SC SCH ×5 (00:13→20:40)
[2019-09-07] MEDS: cefOXitin 2,000 MG in DEXTROSE 5% 50 ML IV SCH (05:32)
[2019-09-07] MEDS: ACETAMINOPHEN 1,000 MG/100 ML VIAL IV SCH ×2 (05:32→13:38)
[2019-09-07] MEDS: KETOROLAC 30 MG/ML VIAL IV SCH ×3 (05:33→18:38)
--- NOTE | 2019-09-07 05:50 | Progress Note ---
Date of Service September 07, 2019 Assessment & Plan (1) H/O colectomy: pain better controlled good urine output- call for now- voiding trial prior to d/c- will be here 3-4 days more- likely more active bs- distended- await flatus/ bm cont IV meds- d/c atbx Results & Data Vital Signs (Past 12 Hours) Vital Signs Temp Pulse Resp BP BP Pulse Ox 09/07/19 03:13 36.9 C 89 16 145/80 H 97 09/06/19 23:11 37.1 C 89 16 150/79 H 95 09/06/19 19:12 36.5 C 94 H 14 137/78 95 PG Care Time/CCT Total # of Minutes Spent Total Time Spent with Patient: Total time spent is greater than 50% in coordination of care (as documented) at patient's floor/unit and/or counseling patient:
[2019-09-07 07:07] LABS: Albumin Globulin Ratio 0.8 (0.9-2); Albumin Level 2.9 gm/dl (3.4-5.0); BUN Creatinine Ratio 11.2 (10-20); Bilirubin,Total 0.6 mg/dl (0.2-1); Calcium 8.1 mg/dl (8.5-10.1); Creatinine Clr Calc Pharmacy 79.9 ml/min; Est GFR (Non-African American) 65.6; Globulin 3.8 gm/dl (2.5-4.0); Phosphorus 1.8 mg/dl (2.5-4.9); Potassium 4.1 mmol/L (3.5-5.1); Total Protein 6.7 gm/dl (6.4-8.2)
[2019-09-07] MEDS: HEPARIN SOD 5,000 UNIT/0.5 ML VIAL SQ SCH ×2 (08:58→20:20)
[2019-09-07] MEDS: MOMETASONE FUROATE NAE SCH (09:01)
[2019-09-07] MEDS: CALCIPOTRIENE TOP SCH ×2 (09:02→20:19)
[2019-09-07] MEDS: NSS + 20MEQ KCL 20 MEQ/1,000 ML BAG IV SCH ×2 (09:46→20:07)
[2019-09-07] MEDS ORDERED: SODIUM PHOSPHATE 3 MMOL/1 ML INFUSION IV STA (10:13)
[2019-09-07] MEDS ORDERED: SODIUM PHOSPHATE 15 MMOL in SODIUM CHLORIDE 0.9% 250 ML IV ONE (10:45)
[2019-09-07] MEDS: SODIUM CHLORIDE 0.9% 1000ML 1,000 ML IV SCH (13:35)
[2019-09-07] MEDS: UMECLIDINIUM BROMIDE INH SCH (20:15)
[2019-09-07] MEDS: TAMSULOSIN HCL 0.4 MG CAP PO SCH (20:17)
[2019-09-08] MEDS: KETOROLAC 30 MG/ML VIAL IV SCH ×2 (00:51→06:08)
[2019-09-08] MEDS: HYDROmorphone PCA 30 MG/30 ML IV PRN (01:19)
[2019-09-08] MEDS: NSS + 20MEQ KCL 20 MEQ/1,000 ML BAG IV SCH (06:08)
[2019-09-08] MEDS ORDERED: IBUPROFEN 600 MG TAB PO PRN (07:06)
[2019-09-08] MEDS ORDERED: FUROSEMIDE 20 MG in SYRINGE 0 ML IV ONE (07:09)
--- NOTE | 2019-09-08 07:14 | Progress Note ---
Date of Service September 08, 2019 Assessment & Plan (1) H/O colectomy: ирина some po- reported bm less distended, call in place d/c [employer]- po/ IV prn pain meds call- voiding trial- 1-2 days- per team , prob here until Wednesday clear liquids today possible d/c Wednesday- remove drain prior to d/c Results & Data Vital Signs (Past 12 Hours) Vital Signs Temp Pulse Pulse Resp BP Pulse Ox 09/08/19 02:53 37.0 C 84 18 153/85 H 97 09/07/19 23:01 37.0 C 85 18 167/90 H 95 09/07/19 20:09 37.1 C 85 18 163/86 H 93 PG Care Time/CCT Total # of Minutes Spent Total Time Spent with Patient: Total time spent is greater than 50% in coordination of care (as documented) at patient's floor/unit and/or counseling patient:
[2019-09-08] MEDS: HYDROCODONE/ACETAMOPHEN 5/325MG TAB PO PRN ×3 (07:58→17:14)
[2019-09-08] MEDS: INSULIN ASPART 100 UNITS/ML 3 ML PEN SC SCH ×4 (08:19→22:16)
--- NOTE | 2019-09-08 08:27 | Urology Progress Note ---
Date of Service September 08, 2019 Assessment & Plan (1) Urinary retention: 59yo M with postop urinary retention Discussed plan of care with Dr. Vera and patient seperately, Pt would like to attempt TOV today, reasonable. Order placed to d/c catheter. Bladder scan qshift x24 hours and straight cath PRN order placed. Assuming successful TOV, recommend continue tamsulosin x4 weeks as outpatient after discharge and can followup with on as needed basis. Please contact our office if unsuccessful. Thank you for allowing us to participate in the acute care of Mr. Mckeon. Please reconsult us with additional questions, concerns or changes in patient status. Subjective 59yo M with post operative retention s/p Laparoscopic-Assisted Sigmoid Colon Resection and umbilical hernia repair by Dr. Vera on 09/04 I walked with patient, ambulating in halls Tolerating tamsulosin well No issues with call catheter Pain presently controlled Per voiding issues preoperatively No Hx straining, urgency. Nocturia - 0 Review of Systems Review of Systems: All systems reviewed & are unremarkable except as noted in HPI & below Physical Exam Constitutional: no acute distress and not ill appearing Eyes: no nystagmus ENMT: Ears: no hearing impairment Neck: trachea midline Respiratory: no respiratory distress and no cough Cardiovascular: Vessels: no JVD Chest (Breasts): Chest: normal inspection of chest Gastrointestinal (Abdomen): Inspection/Auscultation: abdomen not distended and no abdominal edema Percussion/Palpation: abdomen soft; abdomen nontender Musculoskeletal: Head/Neck/Chest: normocephalic and head atraumatic Skin: no rashes, warm and dry Neurologic: awake; not confused and not obtunded Psychiatric: Orientation: alert and oriented x 3 Eye Contact: good eye contact Affect: no depressed affect Genitourinary: bladder normal to inspection; no CVA tenderness Lymphatic: no lymphadenopathy and no lymphedema Results & Data Vital Signs (Past 12 Hours) Vital Signs Temp Pulse Pulse Resp BP BP Pulse Ox 09/08/19 08:01 37.0 C 84 13 142/78 H 97 09/08/19 02:53 37.0 C 84 18 153/85 H 97 09/07/19 23:01 37.0 C 85 18 167/90 H 95 PG Care Time/CCT Total # of Minutes Spent Total Time Spent with Patient: Total time spent is greater than 50% in coordination of care (as documented) at patient's floor/unit and/or counseling patient:
[2019-09-08] MEDS: CALCIPOTRIENE TOP SCH ×2 (09:02→20:18)
[2019-09-08] MEDS: MOMETASONE FUROATE NAE SCH (09:02)
[2019-09-08] MEDS: HEPARIN SOD 5,000 UNIT/0.5 ML VIAL SQ SCH ×2 (09:02→22:09)
[2019-09-08] MEDS: HYDROmorphone INJ 1 MG/ML SYRINGE IV PRN (19:53)
[2019-09-08] MEDS: UMECLIDINIUM BROMIDE INH SCH (20:17)
[2019-09-08] MEDS: TAMSULOSIN HCL 0.4 MG CAP PO SCH (20:17)
[2019-09-08] MEDS: OLMESARTAN MEDOXOMIL 40 MG TAB PO SCH (22:08)
[2019-09-08] MEDS: hydroCHLOROthiazide 25 MG TAB PO SCH (22:08)
[2019-09-09] MEDS: HYDROCODONE/ACETAMOPHEN 5/325MG TAB PO PRN ×3 (00:55→21:52)
[2019-09-09] MEDS: KETOROLAC 30 MG/ML VIAL IV PRN ×2 (02:01→15:15)
[2019-09-09 06:00] LABS: Albumin Globulin Ratio 0.7 (0.9-2); Albumin Level 2.7 gm/dl (3.4-5.0); Bilirubin,Total 0.5 mg/dl (0.2-1); Calcium 8.5 mg/dl (8.5-10.1); Creatinine Clr Calc Pharmacy 107.4 ml/min; Est GFR (African American) 108.7; Est GFR (Non-African American) 93.8; Globulin 3.7 gm/dl (2.5-4.0); Magnesium 1.9 mg/dl (1.8-2.4); Phosphorus 4.3 mg/dl (2.5-4.9); Potassium 3.8 mmol/L (3.5-5.1); Total Protein 6.4 gm/dl (6.4-8.2)
[2019-09-09] MEDS: HYDROmorphone INJ 0.5 MG/0.5 ML SYR IV PRN (06:08)
[2019-09-09] MEDS: INSULIN ASPART 100 UNITS/ML 3 ML PEN SC SCH ×4 (08:30→22:55)
[2019-09-09] MEDS: HEPARIN SOD 5,000 UNIT/0.5 ML VIAL SQ SCH ×2 (08:30→20:22)
[2019-09-09] MEDS: MOMETASONE FUROATE NAE SCH (08:53)
[2019-09-09] MEDS: CALCIPOTRIENE TOP SCH ×2 (08:53→20:22)
[2019-09-09] MEDS: OLMESARTAN MEDOXOMIL 40 MG TAB PO SCH (08:54)
[2019-09-09] MEDS: hydroCHLOROthiazide 25 MG TAB PO SCH (08:54)
--- NOTE | 2019-09-09 09:20 | Surgery Progress Note ---
Date of Service September 09, 2019 Assessment & Plan (1) H/O colectomy: Doing well POD#5. Will advance diet to low fiber. If tolerates, can d/c FENG and d/c home tomorrow. (2) Urinary retention: resolved Subjective Overall feeling well. Tolerating full liquids. No nausea or vomiting. No complaints. Did well with voiding trial yesterday and catheter is out. Review of Systems Review of Systems: All systems reviewed & are unremarkable except as noted in HPI & below Physical Exam Constitutional: WD/WN, vitals as above Respiratory: normal respiratory effort, lungs clear to auscultation Cardiovascular: RRR, no murmur, no edema Gastrointestinal (Abdomen): normal bowel sounds, soft, nontender, no hepatosplenomegaly incision clean and intact, FENG with serous drainage Neurologic: moves all extremities; no focal motor deficits Results & Data Vital Signs (Past 12 Hours) Vital Signs Temp Pulse Resp BP BP Pulse Ox 09/09/19 07:16 36.9 C 75 20 149/79 H 96 09/08/19 23:51 37 C 86 16 150/85 H 95 Laboratory Results BMP results OK
[2019-09-09] MEDS: UMECLIDINIUM BROMIDE INH SCH (20:21)
[2019-09-09] MEDS: TAMSULOSIN HCL 0.4 MG CAP PO SCH (20:21)
[2019-09-10] MEDS: HYDROCODONE/ACETAMOPHEN 5/325MG TAB PO PRN (04:00)
[2019-09-10] MEDS: HEPARIN SOD 5,000 UNIT/0.5 ML VIAL SQ SCH (08:44)
[2019-09-10] MEDS: hydroCHLOROthiazide 25 MG TAB PO SCH (08:46)
[2019-09-10] MEDS: MOMETASONE FUROATE NAE SCH (08:46)
[2019-09-10] MEDS: OLMESARTAN MEDOXOMIL 40 MG TAB PO SCH (08:46)
[2019-09-10] MEDS: CALCIPOTRIENE TOP SCH (08:46)
--- NOTE | 2019-09-10 08:51 | Surgery Progress Note ---
Date of Service September 10, 2019 Assessment & Plan (1) H/O colectomy: Doing well. Stable for discharge today. Instructions reviewed. FENG drain removed. Subjective Doing well. Tolerated low fiber diet. Bowels functioning. Voiding without cath eter. Feels ready to go home. Review of Systems Review of Systems: All systems reviewed & are unremarkable except as noted in HPI & below Physical Exam Constitutional: WD/WN, vitals as above Respiratory: normal respiratory effort, lungs clear to auscultation Cardiovascular: RRR, no murmur, no edema Gastrointestinal (Abdomen): normal bowel sounds, soft, nontender, no hepatosplenomegaly Percussion/Palpation: abdomen soft incision clean, packing changed, FENG removed Neurologic: moves all extremities Psychiatric: A+Ox3, euthymic affect Results & Data Vital Signs (Past 12 Hours) Vital Signs Temp Pulse Pulse Resp BP Pulse Ox 09/10/19 07:08 36.9 C 80 18 146/79 H 93 09/09/19 22:55 37.1 C 93 H 16 162/80 H 95 09/09/19 21:53 165/90 H
[2019-09-10] MEDS: INSULIN ASPART 100 UNITS/ML 3 ML PEN SC SCH (08:53)
--- NOTE | 2019-09-13 08:03 | Discharge Summary ---
DATE OF ADMISSION: 09/04/2019 DATE OF DISCHARGE: 09/10/2019 PRINCIPAL DIAGNOSIS: Sigmoid diverticulitis. PROCEDURES: The patient underwent laparoscopic assisted sigmoid colectomy. HISTORY OF PRESENT ILLNESS: The patient is a 59-year-old male who had complicated perforated diverticulitis, was brought into the hospital on 09/04/2019 for definitive surgery. HOSPITAL COURSE: The patient was taken to the operating room where he underwent laparoscopic assisted sigmoid colectomy which he tolerated very well. Postoperatively, he did progressed well, but slowly advancing in both diet and activity and felt stable for discharge home on 09/10/2019 to be followed in the surgical clinic within 1 week.
== END 2019-09-10 10:32 | disposition home or self-care (01) | DRG 331 ==
LOC: ASU 05:14 → 3N 09:35